=== PATIENT | male | born 1970 | race Caucasian/White ===

== ENCOUNTER → 2018-04-07 07:13 | Outpatient (CLI) | payer OTHER, SELFPAY ==
--- NOTE | 2018-04-07 07:13 | DT_ITS ---
This patient was seen during an EMR downtime April 03, 2018 - April 10, 2018. This patient may have a combination of paper and electronic documentation or all paper documentation. All documentation is viewable within the e-chart portion of [facility] for each patient visit.
[2018-04-07 10:15] LABS: Color, Urine Yellow (Yellow); Glucose, Dipstick Normal (Normal); Ketone-Dipstick Negative (Negative); Leukocyte Esterase-Dipstick Negative /ul (Negative); Nitrite-Dipstick Negative (Negative); Occult Blood-Urine Negative /ul (Negative); Protein-Dipstick 15 mg/dl (Negative); Urine Bilirubin Dipstick Negative (Negative); Urine Clarity Sl. Cloudy (Clear); Urine Urobilinogen Normal (Normal); Urine pH 6.5 (5.0 - 8.0)
[2018-04-07 11:59] LABS: Mean Corp Hgb Conc 35.4 g/gl (32-36); Mean Corpuscular Hgb 32.1 pg (27.0-32.0); Mean Corpuscular Volume 90.7 fL (80-94); RBC Distribution Width CV 12.1 % (11.6-14.6); RBC Distribution Width SD 39.9 fl (35.1-43.9); Red Blood Count 5.29 M/mm3 (4.6-6.2); White Blood Count 5.4 K/mm3 (4.4-11.0)
[2018-04-07 12:00] LABS: Absolute Lymphocyte Count 1.35 X10^3/ul (0.83-4.51); Absolute Neutrophil Count 3.3 X10^3/uL (2.0-7.7); Basophil# 0.03 X10^3/uL; Basophil% 0.6 % (0-1); Eosinophils% 3.7 % (0-5); Lymphocyte # 1.35 X10^3/ul (4.0); Mean Platelet Vol. 11.7 fl (6.2-12.0); Monocyte# 0.51 X10^3/uL; Monocyte% 9.4 % (0-10); Neutrophil % 61.1 % (47-70); POSITIVE COUNT NO; POSITIVE DIFFERENTIAL NO; POSITIVE MORPHOLOGY NO; Platelet Count 134 K/mm3 (150-450)
[2018-04-07 14:47] LABS: Hemoglobin A1c 5.4 % (4.2-6.3)
[2018-04-07 14:55] LABS: ALB/GLOB Ratio 1.3 RATIO (0.9-2.4); AST(SGOT) 24 U/L (15-37); Alanine Aminotransfer ALT/SGPT 47 U/L (16-61); Alkaline Phosphatase 52 U/L (45-117); BUN 18 mg/dL (7-18); BUN/Creat Ratio 19.1 RATIO (10-20); Calcium,Total 8.6 mg/dL (8.5-10.1); Creatinine, Serum 0.94 mg/dL (0.70-1.30); EST Glomerular Filtration Rate 91 mL/min (>60); Est Glom Filt Rate - Afr Amer 110 mL/min (>60); Globulin 3.2 g/dL (2.2-4.2); Glucose 115 mg/dL (74-106); Protein, Total 7.2 g/dL (6.4-8.2)
[2018-04-07 14:56] LABS: Anion Gap 8 (5-15); Chloride 106 mmol/L (98-107); Cholesterol 150 mg/dL (200); High Density Lipoprotein 39 mg/dL; Sodium Level 142 mmol/L (136-145); Triglycerides 241 mg/dL; Very Low Density Lipoprotein 48 mg/dL (5-40)
== END ==
PROVIDERS: Family Provider Family Medicine; PCP Family Medicine; Visit Provider Family Medicine
DX: Z00.00 Encounter for general adult medical examination without abnormal findings (principal); I10 Essential (primary) hypertension; E78.5 Hyperlipidemia, unspecified; R73.02 Impaired glucose tolerance (oral); Z12.5 Encounter for screening for malignant neoplasm of prostate
CPT/HCPCS: 36415; 80053; 80061; 81002; 83036; 84153; 85025; G0103

== ENCOUNTER → 2019-09-19 05:58 | Outpatient (CLI) | payer OTHER, SELFPAY ==
[2019-09-19 07:09] LABS: Absolute Lymphocyte Count 1.91 X10^3/uL (0.83-4.51); Absolute Neutrophil Count 3.9 X10^3/uL (2.0-7.7); Basophil# 0.06 X10^3/uL; Basophil% 0.9 % (0-1); Eosinophil# 0.17 X10^3/uL; Eosinophils% 2.6 % (0-5); Hematocrit 50.4 % (40-54); Hemoglobin 17.1 g/dL (13.0-16.5); Lymphocyte # 1.91 X10^3/ul (4.0); Mean Corp Hgb Conc 33.9 g/dL (32-36); Mean Corpuscular Hgb 30.5 pg (27.0-32.0); Mean Corpuscular Volume 89.8 fL (80-94); Mean Platelet Vol. 11.2 fl (6.2-12.0); Monocyte# 0.56 X10^3/uL; Monocyte% 8.5 % (0-10); NRBC Flagged by Analyzer 0 % (0-5); Neutrophil # 3.86 X10^3/uL (2.7-7.7); Neutrophil % 58.7 % (47-70); Platelet Count 168 K/mm3 (150-450); RBC Distribution Width SD 38.8 fl (35.1-43.9); Red Blood Count 5.61 M/mm3 (4.6-6.2); White Blood Count 6.6 K/mm3 (4.4-11.0)
[2019-09-19 07:38] LABS: Hemoglobin A1c 5.7 % (4.2-6.3)
[2019-09-19 07:44] LABS: ALB/GLOB Ratio 1.3 RATIO (0.9-2.4); AST(SGOT) 27 U/L (15-37); Alanine Aminotransfer ALT/SGPT 40 U/L (16-61); Albumin, Serum 4.1 g/dL (3.2-5.0); Alkaline Phosphatase 60 U/L (45-117); Anion Gap 7 (5-15); BUN 16 mg/dL (7-18); Calcium,Total 8.8 mg/dL (8.5-10.1); Chloride 105 mmol/L (98-107); Cholesterol 152 mg/dL (200); Creatinine, Serum 1.07 mg/dL (0.70-1.30); EST Glomerular Filtration Rate 78 mL/min (>60); Est Glom Filt Rate - Afr Amer 94 mL/min (>60); Globulin 3.2 g/dL (2.2-4.2); Glucose 124 mg/dL (74-106); High Density Lipoprotein 43 mg/dL; PSA,Total - Annual Screen 0.68 ng/mL (0.00-4.00); Potassium 4.1 mmol/L (3.5-5.1); Protein, Total 7.3 g/dL (6.4-8.2); Sodium Level 143 mmol/L (136-145); Triglycerides 150 mg/dL; Very Low Density Lipoprotein 30 mg/dL (5-40)
[2019-09-19 08:25] LABS: Color, Urine Yellow (Yellow); Glucose, Dipstick Normal (Normal); Ketone-Dipstick Negative (Negative); Leukocyte Esterase-Dipstick Negative /ul (Negative); Nitrite-Dipstick Negative (Negative); Occult Blood-Urine Negative /ul (Negative); Protein-Dipstick Negative (Negative); Urine Bilirubin Dipstick Negative (Negative); Urine Clarity Sl. Cloudy (Clear); Urine Urobilinogen Normal (Normal)
== END ==
PROVIDERS: Family Provider Family Medicine; PCP Family Medicine; Referring Provider Family Medicine; Visit Provider Family Medicine
DX: Z00.00 Encounter for general adult medical examination without abnormal findings (principal); Z12.5 Encounter for screening for malignant neoplasm of prostate
CPT/HCPCS: 36415; 80053; 80061; 81002; 83036; 84153; 85025; G0103

== ENCOUNTER 2021-12-15 06:03 | Outpatient (CLI) | payer OTHER, SELFPAY ==
[2021-12-15 07:32] LABS: Absolute Neutrophil Count 3.4 X10^3/uL (2.0-7.7); Basophil# 0.03 X10^3/uL; Basophil% 0.5 % (0-1); Eosinophil# 0.24 X10^3/uL; Eosinophils% 4.4 % (0-5); Hematocrit 45.9 % (40-54); Hemoglobin 16.3 g/dL (13.0-16.5); Lymphocyte % 23.6 % (19-41); Mean Corp Hgb Conc 35.5 g/dL (32-36); Mean Corpuscular Volume 90.2 fL (80-94); Mean Platelet Vol. 11.6 fl (6.2-12.0); Monocyte# 0.48 X10^3/uL; Monocyte% 8.7 % (0-10); NRBC Flagged by Analyzer 0 % (0-5); Neutrophil # 3.42 X10^3/uL (2.7-7.7); Neutrophil % 62.3 % (47-70); Platelet Count 165 K/mm3 (150-450); RBC Distribution Width CV 13.2 % (11.6-14.6); RBC Distribution Width SD 43.3 fl (35.1-43.9); Red Blood Count 5.09 M/mm3 (4.6-6.2); White Blood Count 5.5 K/mm3 (4.4-11.0)
[2021-12-15 07:59] LABS: ALB/GLOB Ratio 1.2 RATIO (0.9-2.4); AST(SGOT) 22 U/L (15-37); Alanine Aminotransfer ALT/SGPT 30 U/L (16-61); Albumin, Serum 3.8 g/dL (3.2-5.0); Alkaline Phosphatase 55 U/L (45-117); Anion Gap 3 (5-15); BUN 11 mg/dL (7-18); BUN/Creat Ratio 13.2 RATIO (10-20); Calcium,Total 8.7 mg/dL (8.5-10.1); Chloride 106 mmol/L (98-107); Cholesterol 122 mg/dL (200); Creatinine, Serum 0.84 mg/dL (0.70-1.30); EST Glomerular Filtration Rate 102 mL/min (>60); Est Glom Filt Rate - Afr Amer 124 mL/min (>60); Globulin 3.1 g/dL (2.2-4.2); Glucose 121 mg/dL (74-106); High Density Lipoprotein 42 mg/dL; PSA,Total - Annual Screen 0.66 ng/mL (0.00-4.00); Potassium 3.9 mmol/L (3.5-5.1); Protein, Total 6.9 g/dL (6.4-8.2); Sodium Level 140 mmol/L (136-145); Triglycerides 147 mg/dL; Very Low Density Lipoprotein 29 mg/dL (5-40)
[2021-12-15 08:30] LABS: Hemoglobin A1c 5.5 % (3.8-5.6)
== END 2021-12-15 23:59 | disposition home or self-care (01) ==
LOC: LAB 06:06
PROVIDERS: PCP Family Medicine; Referring Provider Family Medicine; Visit Provider Family Medicine
DX: Z00.00 Encounter for general adult medical examination without abnormal findings (principal); Z12.5 Encounter for screening for malignant neoplasm of prostate; E78.5 Hyperlipidemia, unspecified; I10 Essential (primary) hypertension; R73.02 Impaired glucose tolerance (oral)
CPT/HCPCS: 36415; 80053; 80061; 83036; 84153; 85025; G0103

== ENCOUNTER → 2023-05-18 | Outpatient (CLI) | payer OTHER, SELFPAY ==
[2023-05-18 10:13] LABS: Absolute Lymphocyte Count 1.37 X10^3/uL (0.83-4.51); Absolute Neutrophil Count 4.5 X10^3/uL (2.0-7.7); Basophil# 0.04 X10^3/uL; Basophil% 0.6 % (0-1); Eosinophil# 0.25 X10^3/uL; Eosinophils% 3.7 % (0-5); Hematocrit 47.6 % (40-54); Lymphocyte # 1.37 X10^3/ul (0.83-4.51); Lymphocyte % 20.4 % (19-41); Mean Corp Hgb Conc 35.7 g/dL (32-36); Mean Corpuscular Hgb 31.7 pg (27.0-32.0); Mean Corpuscular Volume 88.6 fL (80-94); Mean Platelet Vol. 10.8 fl (6.2-12.0); Monocyte# 0.53 X10^3/uL; Monocyte% 7.9 % (0-10); NRBC Flagged by Analyzer 0 % (0-5); Neutrophil # 4.49 X10^3/uL (2.7-7.7); Neutrophil % 66.7 % (47-70); Platelet Count 173 K/mm3 (150-450); RBC Distribution Width CV 12.9 % (11.6-14.6); RBC Distribution Width SD 41.6 fl (35.1-43.9); Red Blood Count 5.37 M/mm3 (4.6-6.2); White Blood Count 6.7 K/mm3 (4.4-11.0)
[2023-05-18 11:04] LABS: ALB/GLOB Ratio 1.1 RATIO (0.9-2.4); AST(SGOT) 23 U/L (15-37); Alanine Aminotransfer ALT/SGPT 38 U/L (16-61); Albumin, Serum 3.9 g/dL (3.2-5.0); Alkaline Phosphatase 56 U/L (45-117); Anion Gap 3 (5-15); BUN 12 mg/dL (7-18); BUN/Creat Ratio 13.7 RATIO (10-20); Chloride 105 mmol/L (98-107); Cholesterol 146 mg/dL (200); Creatinine, Serum 0.88 mg/dL (0.70-1.30); EST Glomerular Filtration Rate 96 mL/min (>60); Est Glom Filt Rate - Afr Amer 116 mL/min (>60); Globulin 3.4 g/dL (2.2-4.2); Glucose 116 mg/dL (74-106); High Density Lipoprotein 45 mg/dL; Potassium 4.4 mmol/L (3.5-5.1); Protein, Total 7.3 g/dL (6.4-8.2); Sodium Level 138 mmol/L (136-145); Triglycerides 173 mg/dL; Very Low Density Lipoprotein 35 mg/dL (5-40)
== END | disposition home or self-care (01) ==
LOC: MFPLAB 08:41
PROVIDERS: PCP Family Medicine; Visit Provider Family Medicine
DX: I10 Essential (primary) hypertension (principal)
CPT/HCPCS: 36415; 80053; 80061; 84443; 85025

== ENCOUNTER → 2023-10-26 | Outpatient (CLI) | payer OTHER, SELFPAY ==
[2023-10-26 10:26] LABS: Hemoglobin A1c 5.5 % (3.8-5.6)
== END | disposition home or self-care (01) ==
LOC: MFPLAB 08:36
PROVIDERS: PCP Family Medicine; Visit Provider Family Medicine
DX: R73.03 Prediabetes (principal); I10 Essential (primary) hypertension
CPT/HCPCS: 36415; 83036

== ENCOUNTER → 2024-04-06 | Outpatient (CLI) | payer OTHER, SELFPAY ==
[2024-04-06 10:19] LABS: Absolute Lymphocyte Count 1.46 X10^3/uL (0.83-4.51); Absolute Neutrophil Count 2.9 X10^3/uL (2.0-7.7); Basophil# 0.04 X10^3/uL; Basophil% 0.8 % (0-1); Eosinophil# 0.27 X10^3/uL; Eosinophils% 5.1 % (0-5); Hematocrit 46.9 % (40-54); Hemoglobin 16.4 g/dL (13.0-16.5); Lymphocyte # 1.46 X10^3/ul (0.83-4.51); Lymphocyte % 27.5 % (19-41); Mean Corpuscular Hgb 30.4 pg (27.0-32.0); Mean Platelet Vol. 11.1 fl (6.2-12.0); Monocyte# 0.57 X10^3/uL; Monocyte% 10.8 % (0-10); NRBC Flagged by Analyzer 0 % (0-5); Neutrophil # 2.94 X10^3/uL (2.7-7.7); Neutrophil % 55.4 % (47-70); Platelet Count 180 K/mm3 (150-450); RBC Distribution Width CV 12.7 % (11.6-14.6); RBC Distribution Width SD 39.8 fl (35.1-43.9); Red Blood Count 5.39 M/mm3 (4.6-6.2); White Blood Count 5.3 K/mm3 (4.4-11.0)
[2024-04-06 11:31] LABS: ALB/GLOB Ratio 1.4 RATIO (0.9-2.4); AST(SGOT) 30 U/L (15-37); Alanine Aminotransfer ALT/SGPT 28 U/L (16-61); Albumin, Serum 4.3 g/dL (3.2-5.0); Alkaline Phosphatase 60 U/L (45-117); Anion Gap 9 (5-15); BUN 17 mg/dL (7-18); BUN/Creat Ratio 18.7 RATIO (10-20); Calcium,Total 9.1 mg/dL (8.5-10.1); Chloride 103 mmol/L (98-107); Cholesterol 151 mg/dL (200); Creatinine, Serum 0.91 mg/dL (0.70-1.30); EST Glomerular Filtration Rate 92 mL/min (>60); Est Glom Filt Rate - Afr Amer 112 mL/min (>60); Glucose 102 mg/dL (74-106); High Density Lipoprotein 50 mg/dL; Potassium 4.3 mmol/L (3.5-5.1); Protein, Total 7.3 g/dL (6.4-8.2); Sodium Level 135 mmol/L (136-145); Thyroid Stim Hormone (TSH) 2.01 uIU/mL (0.358-3.74); Triglycerides 72 mg/dL; Very Low Density Lipoprotein 14 mg/dL (5-40)
== END | disposition home or self-care (01) ==
LOC: MTLAB 07:04
PROVIDERS: PCP Family Medicine; Referring Provider Family Medicine; Visit Provider Family Medicine
DX: I10 Essential (primary) hypertension (principal)
CPT/HCPCS: 36415; 80053; 80061; 84443; 85025

== ENCOUNTER → 2025-05-21 | Outpatient (CLI) | payer OTHER, SELFPAY ==
--- OUTSIDE RECORDS SUMMARY | 2025-05-21 07:07 | XMS RPT_ITS | CCD ---
Author Organization [facility] Care Team Providers Care Porcelain Technician Name Role Phone Ivan STARKEY, Yadira Berry Primary Care Provider Christopher STARKEY, Leo Altamirano Primary Care Provider LEO JAEGER Attending Unavailab edward LOVE, YADIRA BERRY Primary Care Unavailable LEO JAEGER Attending Unavailab LEO Sims Primary Care Unavailab Gagandeep Ortiz Unavailable Liza Obregon Primary Care Unavailable Sabas, Liza Attending Unavailable Sabas, Chalon Primary Care Unavailable Sabas, Liza Attending Unavailable Sabas, Apurvaon Referring Unavailable Sabas, Chalon Primary Care Unavailable Sabas, Liza Attending Unavailable Medications Completed/Discontinued Medications Medication Drug Class(es) Dates Sig (Normalized) Sig (Original) amLODIPine 5 mg oral tablet (3 sources) Dihydropyridine Calcium Channel Maricarmen Start: 04-11-2023 take 1 tablet by mouth once daily amLODIPine (NORVASC) 5 mg tablet take 1 tablet by mouth once daily 90 tablet 3 04/11/2023 Active Start: 01-12-2020 take 1 tablet by jayce th once daily amLODIPine (NORVASC) 5 mg tablet Take 1 tablet by mouth once daily. 0 01/12/2020 Active Comment on above: Take 1 tablet by jayce th once daily. take 1 tablet by jayce th once daily atenolol 25 mg oral tablet (2 sources) beta-Adrenergic Maricarmen Start: 2010 End: 2022 take 1 tablet by mouth once daily atenolol 25 mg ORAL tablet Take one(1) tablet daily. 90 Tab 3 11/09/2010 11/19/2022 Discontinued Comment on above: Take one(1) tablet d aily. benzonatate 200 mg oral capsule (3 sources) Non-narcotic Antitussive Start: 2010 take 1 capsule by mouth every eight hours as needed Benzonatate (TESSALON) 200 mg ORAL capsule Take 200 mg by mouth three times daily as needed. FOR COUGHING. 30 capsule 0 04/07/2011 Active Comment on above: Take 200 mg by mouth three times daily as needed. FOR COUGHING. codeine phosphate 2 mg/ml / guaiFENesin 20 mg/ml oral solution (3 sources) Opioid Agonist Start: 2010 take 1-2 [tsp_us] by mouth at bedtime as needed codeine-guaifenesin 10-100 mg/5 mL ORAL Syrp TAKE 1-2 TEASPOON at bedtime NEEDED FOR COUGHING. 60 mL 0 04/07/2011 Active Comment on above: TAKE 1-2 TEASPOON at bedtime NEEDED FOR COUGHING. hydroCHLOROthiazide 25 mg oral tablet (3 sources) Thiazide Diuretic Start: 2010 take 1 tablet by mouth once daily hydrochlorothiazide 25 mg ORAL tablet Indications: Essential hypertension, benign Take one(1) tablet daily. 90 Tab 3 11/09/2010 Active Comment on above: Take one(1) tablet d aily. lisinopril 20 mg oral tablet (5 sources) Angiotensin Converting Enzyme Inhibitor Start: 2021 End: 2022 take 1 tablet by mouth once daily lisinopril (ZESTRIL, PRINIVIL) 20 mg tablet Take 1 tablet by mouth once daily. 90 tablet 3 11/19/2022 Active Start: 08-03-2010 End: 10-04-2022 take 1 tablet by mouth once daily lisinopril 10 mg ORAL tablet Indications: Essential hypertension, benign Take one(1) tablet daily. 90 3 08/03/2010 10/04/2022 Discontinued Comment on above: Take one(1) tablet d aily. Take 1 tablet by jayce th once daily. 24 hr metoprolol succinate 50 mg extended release oral tablet (4 sources) beta-Adrenergic Maricarmen Start: 06-17-2020 End: 11-19-2022 take 1 tablet by mouth once daily metoprolol succinate ER (TOPROL XL) 50 mg 24 hr tablet Take 1 tablet by mouth once daily. 90 tablet 3 11/19/2022 Active Comment on above: Take 50 mg by mouth once daily. Take 1 tablet by jayce once daily. omeprazole 20 mg delayed release oral capsule (3 sources) Proton Pump Inhibitor Start: 04-11-2023 take 1 capsule by mouth once daily omeprazole (PRILOSEC) 20 mg capsule take 1 capsule by mouth once daily as directed 90 capsule 3 04/11/2023 Active Start: 06-11-2021 omeprazole (MS ILOSEC) 20 mg capsule Take by mouth. 0 06/11/2021 Active Comment on above: Take by mouth. take 1 capsule by mo [facility] once daily as directed Problems Active Problems Problem Classification Problem Date Documented Da te Episodic/Chronic Disorders of lipid metabolism (1 source) Hyperlipidemia; Translations: [Hyperlipidemia, unspecified] Onset: 06-17-2017 04-08-2023 Chronic Essential hypertension (6 sources) Benign essential hypertension; Translations: [Essential (primary) hypertension] Onset: 12-25-2005 Chronic Other nutritional; endocrine; and metabolic disorders (3 sources) Obesity; Translations: [Obesity, unspecified] Onset: 03-19-2006 03-19-2006 Chronic Screening and history of mental health and substance abuse codes (1 source) Encounter for screening for depression; Translations: [Screening for depression] Onset: 04-11-2023 Episodic Unclassified (1 source) 6 Month Exam Onset: 10-04-2022 Past or Other Problems Problem Classification Problem Date Documented Da te Episodic/Chronic Allergic reactions (3 sources) Contact dermatitis; Translations: [Unspecified contact dermatitis, unspecified cause] Onset: 08-27-2006 12-08-2007 Episodic Diabetes mellitus without complication (5 sources) Impaired fasting glycemia; Translations: [Impaired fasting glucose] Onset: 06-02-2009 06-02-2009 Episodic Other screening for suspected conditions (not mental disorders or infectious disease) (6 sources) Liver function tests abnormal; Translations: [Nonspecific abnormal results of function study of liver] Onset: 02-02-2010 02-02-2010 Episodic Results Test Name Value Interpretation Reference Range Facility CBC W/Diff, Automatedon 06-0 Absolute Lymph 1.46 X10 3/uL Normal 0.83-4.51 [facility] Comment on above: Order Comment: Order Date: 10/26/23 Order Info: [id number] - CBCD Performed By: #### L 500.4050, L100.0100, L500.4100, [id number] #### [facility] [address] [place], [address] Absolute Neut 2.9 X10 3/uL Normal 2.0-7.7 [facility] Comment on above: Order Comment: Order Date: 10/26/23 Order Info: 0184-1 - CBCD Performed By: #### L 500.4050, L100.0100, L500.4100, [id number] #### [facility] [address] [place], [address] Basophils/100 WBC (Bld) 0.8 % Normal 0-1 [facility] Comment on above: Order Comment: Order Date: 10/26/23 Order Info: 018- - CBCD Performed By: #### L 500.4050, L100.0100, L500.4100, [id number] #### [facility] [address] [place], [address] Eosinophils/100 WBC (Bld) 5.1 % High 0-5 [facility] Comment on above: Order Comment: Order Date: 10/26/23 Order Info: 018- - CBCD Performed By: #### L 500.4050, L100.0100, L500.4100, [id number] #### [facility] [address] [place], [address] Erythrocyte distribution width (RBC) [Ratio] 12.7 % Normal 11.6-14.6 [facility] Comment on above: Order Comment: Order Date: 10/26/23 Order Info: 0184-1 - CBCD Performed By: #### L 500.4050, L100.0100, L500.4100, [id number] #### [facility] [address] [place], [address] Hematocrit (Bld) [Volume fraction] 46.9 % Normal 40-54 [facility] Comment on above: Order Comment: Order Date: 10/26/23 Order Info: 0184-1 - CBCD Performed By: #### L 500.4050, L100.0100, L500.4100, [id number] #### [facility] [address] [place], [address] Hemoglobin (Bld) [Mass/Vol] 16.4 g/dL Normal 13.0-16.5 [facility] Comment on above: Order Comment: Order Date: 10/26/23 Order Info: 0184- - CBCD Performed By: #### L 500.4050, L100.0100, L500.4100, [id number] #### [facility] [address] [place], [address] IG% 0.400 Normal 0.0-0.9 [facility] Comment on above: Order Comment: Order Date: 10/26/23 Order Info: [id number]- - CBCD Result Comment: IG% - Immature Granulocytes (promyelocytes, myelocytes and metamyelocytes) > 1% indicates that a LEFT SHIFT is Present. Performed By: #### L 500.4050, L100.0100, L500.4100, [id number] #### [facility] [address] [place], [address] Lymphocytes/100 WBC (Bld) 27.5 % Normal 19-41 [facility] Comment on above: Order Comment: Order Date: 10/26/23 Order Info: 0184-1 - CBCD Performed By: #### L 500.4050, L100.0100, L500.4100, [id number] #### [facility] [address] [place], [address] MCH (RBC) [Entitic mass] 30.4 pg Normal 27.0-32.0 [facility] Comment on above: Order Comment: Order Date: 10/26/23 Order Info: 0184-1 - CBCD Performed By: #### L 500.4050, L100.0100, L500.4100, [id number] #### [facility] [address] [place], [address] MCHC (RBC) [Mass/Vol] 35.0 g/dL Normal 32-36 [facility] Comment on above: Order Comment: Order Date: 10/26/23 Order Info: 0184-1 - CBCD Performed By: #### L 500.4050, L100.0100, L500.4100, [id number] #### [facility] [address] [place], [address] MCV (RBC) [Entitic vol] 87.0 fL Normal 80-94 [facility] Comment on above: Order Comment: Order Date: 10/26/23 Order Info: 018-1 - CBCD Performed By: #### L 500.4050, L100.0100, L500.4100, [id number] #### [facility] [address] [place], [address] Monocytes/100 WBC (Bld) 10.8 % High 0-10 [facility] Comment on above: Order Comment: Order Date: 10/26/23 Order Info: 0184-1 - CBCD Performed By: #### L 500.4050, L100.0100, L500.4100, [id number] #### [facility] [address] [place], [address] Neutrophils/100 WBC (Bld) 55.4 % Normal 47-70 [facility] Comment on above: Order Comment: Order Date: 10/26/23 Order Info: 0184-1 - CBCD Performed By: #### L 500.4050, L100.0100, L500.4100, [id number] #### [facility] [address] [place], [address] Nucleated RBC (Bld) [#/Vol] 0 10*3/uL Normal 0-5 [facility] Comment on above: Order Comment: Order Date: 10/26/23 Order Info: 0184-1 - CBCD Performed By: #### L 500.4050, L100.0100, L500.4100, [id number] #### [facility] [address] [place], [address] Platelet mean volume (Bld) [Entitic vol] 11.1 fL Normal 6.2-12.0 [facility] Comment on above: Order Comment: Order Date: 10/26/23 Order Info: 0184- - CBCD Performed By: #### L 500.4050, L100.0100, L500.4100, [id number] #### [facility] [address] [place], [address] Platelets (Bld) [#/Vol] 180 10*3/uL Normal 150-450 [facility] Comment on above: Order Comment: Order Date: 10/26/23 Order Info: 0184- - CBCD Performed By: #### L 500.4050, L100.0100, L500.4100, [id number] #### [facility] [address] [place], [address] RBC (Bld) [#/Vol] 5.39 10*6/uL Normal 4.6-6.2 [facility] Comment on above: Order Comment: Order Date: 10/26/23 Order Info: 0184-1 - CBCD Performed By: #### L 500.4050, L100.0100, L500.4100, [id number] #### [facility] [address] [place], [address] RDW SD 39.8 fl Normal 35.1-43.9 [facility] Comment on above: Order Comment: Order Date: 10/26/23 Order Info: 0184-1 - CBCD Performed By: #### L 500.4050, L100.0100, L500.4100, [id number] #### [facility] [address] [place], [address] WBC (Bld) [#/Vol] 5.3 10*3/uL Normal 4.4-11.0 [facility] Comment on above: Order Comment: Order Date: 10/26/23 Order Info: 0184-1 - CBCD Performed By: #### L 500.4050, L100.0100, L500.4100, [id number] #### [facility] [address] [place], [address] Comprehensive Metabolic Prof ilon 04-06-2024 Albumin [Mass/Vol] 4.3 g/dL Normal 3.2-5.0 [facility] Comment on above: Order Comment: Order Date: 10/26/23 Order Info: [id number] - CMP Order Info: [id number] - LIPID Order Info: [id number] - TSH Performed By: #### L 500.4050, L100.0100, L500.4100, [id number] #### [facility] [address] [place], [address] Albumin/Globulin [Mass ratio] 1.4 {ratio} Normal 0.9-2.4 [facility] Comment on above: Order Comment: Order Date: 10/26/23 Order Info: [id number] - CMP Order Info: [id number] - LIPID Order Info: [id number] - TSH Performed By: #### L 500.4050, L100.0100, L500.4100, [id number] #### [facility] [address] [place], [address] ALK P 60 U/L Normal 45-117 [facility] Comment on above: Order Comment: Order Date: 10/26/23 Order Info: [id number] - CMP Order Info: [id number] - LIPID Order Info: [id number] - TSH Performed By: #### L 500.4050, L100.0100, L500.4100, [id number] #### [facility] [address] [place], [address] ALT [Catalytic activity/Vol] 28 U/L Normal 16-61 [facility] Comment on above: Order Comment: Order Date: 10/26/23 Order Info: 785-1 - CMP Order Info: [id number] - LIPID Order Info: 3 - TSH Performed By: #### L 500.4050, L100.0100, L500.4100, [id number] #### [facility] [address] [place], [address] AST [Catalytic activity/Vol] 30 U/L Normal 15-37 [facility] Comment on above: Order Comment: Order Date: 10/26/23 Order Info: [id number] - CMP Order Info: - LIPID Order Info: [id number] - TSH Performed By: #### L 500.4050, L100.0100, L500.4100, [id number] #### [facility] [address] [place], [address] Bilirubin [Mass/Vol] 2.10 mg/dL High 0.20-1.00 [facility] Comment on above: Order Comment: Order Date: 10/26/23 Order Info: [id number] - CMP Order Info: - LIPID Order Info: 3 - TSH Result Comment: For patients on eltrombopag therapy, use of Dimension [place] TBIL is not recommended. Performed By: #### L 500.4050, L100.0100, L500.4100, [id number] #### [facility] [address] [place], [address] BUN/CRE 18.7 RATIO Normal 10-20 [facility] Comment on above: Order Comment: Order Date: 10/26/23 Order Info: 07- - CMP Order Info: - LIPID Order Info: [id number] - TSH Performed By: #### L 500.4050, L100.0100, L500.4100, [id number] #### [facility] [address] [place], [address] CA,Total 9.1 mg/dL Normal 8.5-10.1 [facility] Comment on above: Order Comment: Order Date: 10/26/23 Order Info: 785- - CMP Order Info: [id number] - LIPID Order Info: [id number] - TSH Performed By: #### L 500.4050, L100.0100, L500.4100, [id number] #### [facility] [address] [place], [address] Chloride [Moles/Vol] 103 mmol/L Normal 98-107 [facility] Comment on above: Order Comment: Order Date: 10/26/23 Order Info: 07 - CMP Order Info: [id number] - LIPID Order Info: [id number] - TSH Performed By: #### L 500.4050, L100.0100, L500.4100, [id number] #### [facility] [address] [facility] [address] [place], [address] CO2 [Moles/Vol] 23.0 mmol/L Normal 21.0-32.0 [facility] Comment on above: Order Comment: Order Date: 10/26/23 Order Info: 07 - CMP Order Info: [id number] - LIPID Order Info: [id number] - TSH Performed By: #### L 500.4050, L100.0100, L500.4100, [id number] #### [facility] [address] [facility] [address] [address] [place], [address] Creatinine [Mass/Vol] 0.91 mg/dL Normal 0.70-1.30 [facility] Comment on above: Order Comment: Order Date: 10/26/23 Order Info: 0786- - CMP Order Info: [id number] - LIPID Order Info: 3 - TSH Result Comment: The validity of the calculated GFR GFRAA in patients over 70 years has not been determined. Clinical correlation is essential. Performed By: #### L 500.4050, L100.0100, L500.4100, [id number] #### [facility] [address] [place], [address] EST GFR - AA 112 mL/min Normal >60 [facility] Comment on above: Order Comment: Order Date: 10/26/23 Order Info: 07-1 - CMP Order Info: [id number] - LIPID Order Info: 3 - TSH Result Comment: Afri can Ghanaian GFR Calc Performed By: #### L 500.4050, L100.0100, L500.4100, [id number] #### [facility] [address] [place], [address] GAP 9 Normal 5-15 [facility] Comment on above: Order Comment: Order Date: 10/26/23 Order Info: 0786 - CMP Order Info: [id number] - LIPID Order Info: 3 - TSH Performed By: #### L 500.4050, L100.0100, L500.4100, [id number] #### [facility] [address] [place], [address] GFR/1.73 sq M.predicted among non-blacks MDRD (S/P/Bld) [Vol rate/Area] 92 mL/min/{1.73_m2} Normal >60 [facility] Comment on above: Order Comment: Order Date: 10/26/23 Order Info: [id number] - CMP Order Info: [id number] - LIPID Order Info: 63 - TSH Result Comment: Non- GFR Calc Performed By: #### L 500.4050, L100.0100, L500.4100, [id number] #### [facility] [address] [place], [address] Globulin (S) [Mass/Vol] 3.0 g/dL Normal 2.2-4.2 [facility] Comment on above: Order Comment: Order Date: 10/26/23 Order Info: [id number] - CMP Order Info: - LIPID Order Info: [id number] - TSH Performed By: #### L 500.4050, L100.0100, L500.4100, [id number] #### [facility] [address] [place], [address] Glucose [Mass/Vol] 102 mg/dL Normal 74-106 [facility] Comment on above: Order Comment: Order Date: 10/26/23 Order Info: [id number] - CMP Order Info: - LIPID Order Info: [id number] - TSH Result Comment: Fast ing Glucose result from 100 to 125 mg/dL suggests IMPAIRED HOMEOSTASIS per A.D.A. criteria. Performed By: #### L 500.4050, L100.0100, L500.4100, [id number] #### [facility] [address] [place], [address] Potassium [Moles/Vol] 4.3 mmol/L Normal 3.5-5.1 [facility] Comment on above: Order Comment: Order Date: 10/26/23 Order Info: [id number] - CMP Order Info: - LIPID Order Info: [id number] - TSH Performed By: #### L 500.4050, L100.0100, L500.4100, [id number] #### [facility] [address] [place], [address] Sodium [Moles/Vol] 135 mmol/L Low 136-145 [facility] Comment on above: Order Comment: Order Date: 10/26/23 Order Info: [id number] - CMP Order Info: - LIPID Order Info: [id number] - TSH Performed By: #### L 500.4050, L100.0100, L500.4100, [id number] #### [facility] [address] [place], [address] T PROT 7.3 g/dL Normal 6.4-8.2 [facility] Comment on above: Order Comment: Order Date: 10/26/23 Order Info: [id number] - CMP Order Info: [id number] - LIPID Order Info: [id number] - TSH Performed By: #### L 500.4050, L100.0100, L500.4100, [id number] #### [facility] [address] [place], [address] Urea nitrogen [Mass/Vol] 17 mg/dL Normal 7-18 [facility] Comment on above: Order Comment: Order Date: 10/26/23 Order Info: [id number] - CMP Order Info: - LIPID Order Info: [id number] - TSH Performed By: #### L 500.4050, L100.0100, L500.4100, [id number] #### [facility] [address] [place], [address] Lipid Profileon 04-06-2024 Cholesterol [Mass/Vol] 151 mg/dL Normal 200 [facility] Comment on above: Order Comment: Order Date: 10/26/23 Order Info: 785-10 - CMP Order Info: - LIPID Order Info: [id number] - TSH Result Comment: <200 mg/dL Desirable 200-240 mg/dL Borderline >240 mg/dL High Risk Performed By: #### L 500.4050, L100.0100, L500.4100, [id number] #### [facility] [address] [place], [address] Cholesterol in HDL [Mass/Vol] 50 mg/dL Normal [facility] Comment on above: Order Comment: Order Date: 10/26/23 Order Info: [id number] - CMP Order Info: - LIPID Order Info: [id number] - TSH Result Comment: The drugs N-Acetylcysteine and Metamizole may falsely depress this assay. Reference Range HDL <40 mg/dL Low HDL Cholesterol HDL >or= 60 mg/dL High HDL Cholesterol Performed By: #### L 500.4050, L100.0100, L500.4100, [id number] #### [facility] [address] [place], [address] Cholesterol in LDL [Mass/Vol] 87 mg/dL Normal 0-130 [facility] Comment on above: Order Comment: Order Date: 10/26/23 Order Info: 0786-1 - CMP Order Info: [id number] - LIPID Order Info: [id number] - TSH Performed By: #### L 500.4050, L100.0100, L500.4100, [id number] #### [facility] [address] [place], [address] Cholesterol in VLDL [Mass/Vol] 14 mg/dL Normal 5-40 [facility] Comment on above: Order Comment: Order Date: 10/26/23 Order Info: 0786- - CMP Order Info: [id number] - LIPID Order Info: 6-3 - TSH Performed By: #### L 500.4050, L100.0100, L500.4100, [id number] #### [facility] [address] [place], [address] Triglyceride [Mass/Vol] 72 mg/dL Normal [facility] Comment on above: Order Comment: Order Date: 10/26/23 Order Info: 0786- - CMP Order Info: [id number] - LIPID Order Info: [id number] - TSH Result Comment: The drugs N-Acetylcysteine and Metamizole may falsely depress this assay. Serum Triglycerides Reference Interval Normal <150 mg/dL Borderline high 150 - 199 mg/dL High 200 - 499 mg/dL Very High > or = 500 mg/dL Performed By: #### L 500.4050, L100.0100, L500.4100, [id number] #### [facility] [address] [place], [place], [address] Thyroid Stim Hormone (TSH)on 04-06-2024 TSH 2.01 uIU/mL Normal 0.358-3.74 [facility] Comment on above: Order Comment: Order Date: 10/26/23 Order Info: [id number] - CMP Order Info: [id number] - LIPID Order Info: [id number] - TSH Performed By: #### L 500.4050, L100.0100, L500.4100, [id number] #### [facility] [address] [place], [place], [address] Hemoglobin A1con 10-26-2023 HbA1c (Bld) [Mass fraction] 5.5 % Normal 3.8-5.6 [facility] Comment on above: Result Comment: Norm al < 5.7 % Prediabetic 5.7 - 6.4 % Diabetic >or= 6.5 % Please note range changes. Performed By: #### L [id number] #### [facility] [address] [place], [place], [address] Whole blood hemoglobin A1c/t otal hemoglobin ratio (mass fraction)Ordered By: Liza Obregon on 10-26-2023 HbA1c (Bld) [Mass fraction] 5.5 % 3.8-5.6 [facility] [facility] Comment on above: Normal < 5.7 % Predi abetic 5.7 - 6.4 % Diabetic >or= 6.5 % Please note range changes. Absolute lymphocyte countOrd ered By: Liza Obregon on 05-18-2023 Lymphocytes Auto (Unsp spec) [#/Vol] 1.37 10*3/uL 0.83-4.51 [facility] Basophil percentageOrdered B y: Liza Obregon on 05-18-2023 Basophils/100 WBC (Bld) 0.6 % 0-1 [facility] Bilirubin [Mass/Vol] 1.20 mg/dL 0.20-1.00 [facility] Comment on above: For patients on eltr ombopag therapy, use of Dimension [place] TBIL is not recommended. Chloride [Moles/Vol] 105 mmol/L 98-107 [facility] Cholesterol [Mass/Vol] 146 mg/dL <200 [facility] Comment on above: <200 mg/dL Desirable 200-240 mg/dL Borderline >240 mg/dL High Risk Eosinophils/100 WBC (Bld) 3.7 % 0-5 [facility] Glucose [Mass/Vol] 116 mg/dL 74-106 [facility] Comment on above: Fasting Glucose resu lt from 100 to 125 mg/dL suggests IMPAIRED HOMEOSTASIS per A.D.A. criteria. Neutrophils (Bld) [#/Vol] 4.5 10*3/uL 2.0-7.7 [facility] Neutrophils/100 WBC (Bld) 66.7 % 47-70 [facility] Potassium [Moles/Vol] 4.4 mmol/L 3.5-5.1 [facility] Protein [Mass/Vol] 7.3 g/dL 6.4-8.2 [facility] Sodium [Moles/Vol] 138 mmol/L 136-145 [facility] Triglyceride [Mass/Vol] 173 mg/dL <199 [facility] Comment on above: The drugs N-Acetylcy steine and Metamizole may falsely depress this assay.Serum Triglycerides Reference Interval Normal <150 mg/dL Borderline high 150 - 199 mg/dL High 200 - 499 mg/dL Very High > or = 500 mg/dL WBC (Bld) [#/Vol] 6.7 10*3/uL 4.4-11.0 [facility] Blood erythrocytes count (nu mber/volume)Ordered By: Liza Obregon on 05-18-2023 RBC (Bld) [#/Vol] 5.37 10*6/uL 4.6-6.2 [facility] Blood hemoglobin measurement (mass/volume)Ordered By: Liza Obregon on 05-18-2023 Hemoglobin (Bld) [Mass/Vol] 17.0 g/dL 13.0-16.5 [facility] Blood lymphocytes/100 leukoc ytesOrdered By: Liza Obregon on 05-18-2023 Lymphocytes/100 WBC (Bld) 20.4 % 19-41 [facility] Blood monocytes/100 leukocyt esOrdered By: Liza Obregon on 05-18-2023 Monocytes/100 WBC (Bld) 7.9 % 0-10 [facility] Blood platelet mean volumeOr dered By: Liza Obregon on 05-18-2023 Platelet mean volume (Bld) [Entitic vol] 10.8 fL 6.2-12.0 [facility] CBC W/Diff, Automatedon 04-30 Absolute Lymph 1.37 X10 3/uL Normal 0.83-4.51 [facility] Comment on above: Performed By: #### L 500.4100, L100.0100, L500.4050, L501.9520 #### [facility] [address] [place], [address] Absolute Neut 4.5 X10 3/uL Normal 2.0-7.7 [facility] Comment on above: Performed By: #### L 500.4100, L100.0100, L500.4050, [id number] #### [facility] [address] [place], [address] Basophils/100 WBC (Bld) 0.6 % Normal 0-1 [facility] Comment on above: Performed By: #### L 500.4100, L100.0100, L500.4050, L501.9520 #### [facility] [address] [place], [address] Eosinophils/100 WBC (Bld) 3.7 % Normal 0-5 [facility] Comment on above: Performed By: #### L 500.4100, L100.0100, L500.4050, [id number] #### [facility] [address] [place], [address] Erythrocyte distribution width (RBC) [Ratio] 12.9 % Normal 11.6-14.6 [facility] Comment on above: Performed By: #### L 500.4100, L100.0100, L500.4050, L501.9520 #### [facility] [address] [place], [address] Hematocrit (Bld) [Volume fraction] 47.6 % Normal 40-54 [facility] Comment on above: Performed By: #### L 500.4100, L100.0100, L500.4050, [id number] #### [facility] [address] [place], [address] Hemoglobin (Bld) [Mass/Vol] 17.0 g/dL High 13.0-16.5 [facility] Comment on above: Performed By: #### L 500.4100, L100.0100, L500.4050, [id number] #### [facility] [address] [place], [address] IG% 0.700 Normal 0.0-0.9 [facility] Comment on above: Result Comment: IG% - Immature Granulocytes (promyelocytes, myelocytes and metamyelocytes) > 1% indicates that a LEFT SHIFT is Present. Performed By: #### L 500.4100, L100.0100, L500.4050, L501.9520 #### [facility] [address] [place], [address] Lymphocytes/100 WBC (Bld) 20.4 % Normal 19-41 [facility] Comment on above: Performed By: #### L 500.4100, L100.0100, L500.4050, [id number] #### [facility] [address] [place], [address] MCH (RBC) [Entitic mass] 31.7 pg Normal 27.0-32.0 [facility] Comment on above: Performed By: #### L 500.4100, L100.0100, L500.4050, [id number] #### [facility] [address] [place], [address] MCHC (RBC) [Mass/Vol] 35.7 g/dL Normal 32-36 [facility] Comment on above: Performed By: #### L 500.4100, L100.0100, L500.4050, [id number] #### [facility] [address] [place], [address] MCV (RBC) [Entitic vol] 88.6 fL Normal 80-94 [facility] Comment on above: Performed By: #### L 500.4100, L100.0100, L500.4050, [id number] #### [facility] [address] [place], [address] Monocytes/100 WBC (Bld) 7.9 % Normal 0-10 [facility] Comment on above: Performed By: #### L 500.4100, L100.0100, L500.4050, [id number] #### [facility] [address] [place], [address] Neutrophils/100 WBC (Bld) 66.7 % Normal 47-70 [facility] Comment on above: Performed By: #### L 500.4100, L100.0100, L500.4050, [id number] #### [facility] [address] [place], [address] Nucleated RBC (Bld) [#/Vol] 0 10*3/uL Normal 0-5 [facility] Comment on above: Performed By: #### L 500.4100, L100.0100, L500.4050, [id number] #### [facility] [address] [place], [address] Platelet mean volume (Bld) [Entitic vol] 10.8 fL Normal 6.2-12.0 [facility] Comment on above: Performed By: #### L 500.4100, L100.0100, L500.4050, [id number] #### [facility] [address] [place], [address] Platelets (Bld) [#/Vol] 173 10*3/uL Normal 150-450 [facility] Comment on above: Performed By: #### L 500.4100, L100.0100, L500.4050, [id number] #### [facility] [address] [place], [address] RBC (Bld) [#/Vol] 5.37 10*6/uL Normal 4.6-6.2 [facility] Comment on above: Performed By: #### L 500.4100, L100.0100, L500.4050, [id number] #### [facility] [address] [place], [address] RDW SD 41.6 fl Normal 35.1-43.9 [facility] Comment on above: Performed By: #### L 500.4100, L100.0100, L500.4050, [id number] #### [facility] [address] [place], [address] WBC (Bld) [#/Vol] 6.7 10*3/uL Normal 4.4-11.0 [facility] Comment on above: Performed By: #### L 500.4100, L100.0100, L500.4050, [id number] #### [facility] [address] [place], [address] Comprehensive Metabolic Prof [facility] 05-18-2023 Albumin [Mass/Vol] 3.9 g/dL Normal 3.2-5.0 [facility] Comment on above: Performed By: #### L 500.4100, L100.0100, L500.4050, [id number] #### [facility] [address] [place], [address] Albumin/Globulin [Mass ratio] 1.1 {ratio} Normal 0.9-2.4 [facility] Comment on above: Performed By: #### L 500.4100, L100.0100, L500.4050, [id number] #### [facility] [address] [place], [address] ALK P 56 U/L Normal 45-117 [facility] Comment on above: Performed By: #### L 500.4100, L100.0100, L500.4050, [id number] #### [facility] [address] [place], [address] ALT [Catalytic activity/Vol] 38 U/L Normal 16-61 [facility] Comment on above: Performed By: #### L 500.4100, L100.0100, L500.4050, [id number] #### [facility] [address] [place], [address] AST [Catalytic activity/Vol] 23 U/L Normal 15-37 [facility] Comment on above: Performed By: #### L 500.4100, L100.0100, L500.4050, [id number] #### [facility] [address] [place], [address] Bilirubin [Mass/Vol] 1.20 mg/dL High 0.20-1.00 [facility] Comment on above: Result Comment: For patients on eltrombopag therapy, use of Dimension [place] TBIL is not recommended. Performed By: #### L 500.4100, L100.0100, L500.4050, L501.9520 #### [facility] [address] [place], [address] BUN/CRE 13.7 RATIO Normal 10-20 [facility] Comment on above: Performed By: #### L 500.4100, L100.0100, L500.4050, [id number] #### [facility] [address] [place], [address] CA,Total 9.0 mg/dL Normal 8.5-10.1 [facility] Comment on above: Performed By: #### L 500.4100, L100.0100, L500.4050, L501.9520 #### [facility] [address] [place], [address] Chloride [Moles/Vol] 105 mmol/L Normal 98-107 [facility] Comment on above: Performed By: #### L 500.4100, L100.0100, L500.4050, [id number] #### [facility] [address] [place], [address] CO2 [Moles/Vol] 30.0 mmol/L Normal 21.0-32.0 [facility] Comment on above: Performed By: #### L 500.4100, L100.0100, L500.4050, L501.9520 #### [facility] [address] [place], [address] Creatinine [Mass/Vol] 0.88 mg/dL Normal 0.70-1.30 [facility] Comment on above: Result Comment: The validity of the calculated GFR GFRAA in patients over 70 years has not been determined. Clinical correlation is essential. Performed By: #### L 500.4100, L100.0100, L500.4050, L501.9520 #### [facility] [address] [place], [address] EST GFR - AA 116 mL/min Normal >60 [facility] Comment on above: Result Comment: Afri can Ghanaian GFR Calc Performed By: #### L 500.4100, L100.0100, L500.4050, L501.9520 #### [facility] [address] [place], [address] GAP 3 Low 5-15 [facility] Comment on above: Performed By: #### L 500.4100, L100.0100, L500.4050, L501.9520 #### [facility] [address] [place], [address] GFR/1.73 sq M.predicted among non-blacks MDRD (S/P/Bld) [Vol rate/Area] 96 mL/min/{1.73_m2} Normal >60 [facility] Comment on above: Result Comment: Non- GFR Calc Performed By: #### L 500.4100, L100.0100, L500.4050, L501.9520 #### [facility] [address] [place], [address] Globulin (S) [Mass/Vol] 3.4 g/dL Normal 2.2-4.2 [facility] Comment on above: Performed By: #### L 500.4100, L100.0100, L500.4050, L501.9520 #### [facility] [address] [place], [address] Glucose [Mass/Vol] 116 mg/dL High 74-106 [facility] Comment on above: Result Comment: Fast ing Glucose result from 100 to 125 mg/dL suggests IMPAIRED HOMEOSTASIS per A.D.A. criteria. Performed By: #### L 500.4100, L100.0100, L500.4050, L501.9520 #### [facility] [address] [place], [address] Potassium [Moles/Vol] 4.4 mmol/L Normal 3.5-5.1 [facility] Comment on above: Performed By: #### L 500.4100, L100.0100, L500.4050, L501.9520 #### [facility] [address] [place], [address] Sodium [Moles/Vol] 138 mmol/L Normal 136-145 [facility] Comment on above: Performed By: #### L 500.4100, L100.0100, L500.4050, L501.9520 #### [facility] [address] [place], [address] T PROT 7.3 g/dL Normal 6.4-8.2 [facility] Comment on above: Performed By: #### L 500.4100, L100.0100, L500.4050, L501.9520 #### [facility] [address] [place], [address] Urea nitrogen [Mass/Vol] 12 mg/dL Normal 7-18 [facility] Comment on above: Performed By: #### L 500.4100, L100.0100, L500.4050, L501.9520 #### [facility] [address] [place], [address] Determination of erythrocyte mean corpuscular volume (MCV)Ordered By: Liza Obregon on 05-18-2023 MCV (RBC) [Entitic vol] 88.6 fL 80-94 [facility] Hematocrit Auto (Bld) [Volum e fraction][facility]: [facility] Hematocrit (Bld) [Volume fraction] 47.6 % 40-54 [facility] - Chemistry and C hemistry - challengeOrdered By: Liza Sabas on 05-18-2023 ALP [Catalytic activity/Vol] 56 U/L 45-117 [facility] ALT [Catalytic activity/Vol] 38 U/L 16-61 [facility] CO2 [Moles/Vol] 30.0 mmol/L 21.0-32.0 [facility] Globulin (S) [Mass/Vol] 3.4 g/dL 2.2-4.2 [facility] Urea nitrogen/Creatinine [Mass ratio] 13.7 mg/mg 10-20 [facility] - Hematology and Cell countsOrdered By: Liza Obregon on 05-18-2023 Erythrocyte distribution width (RBC) [Entitic vol] 41.6 fL 35.1-43.9 [facility] Erythrocyte distribution width (RBC) [Ratio] 12.9 % 11.6-14.6 [facility] Immature granulocytes/100 WBC (Bld) 0.700 % 0.0-0.9 [facility] Comment on above: IG% - Immature Granu locytes (promyelocytes, myelocytes and metamyelocytes) > 1% indicates that a LEFT SHIFT is Present. MCH (RBC) [Entitic mass] 31.7 pg 27.0-32.0 [facility] Nucleated RBC/100 WBC (Bld) [Ratio] 0 % 0-5 [facility] Lipid Profileon 05-18-2023 Cholesterol [Mass/Vol] 146 mg/dL Normal 200 [facility] Comment on above: Result Comment: <200 mg/dL Desirable 200-240 mg/dL Borderline >240 mg/dL High Risk Performed By: #### L 500.4100, L100.0100, L500.4050, L501.9520 #### [facility] [address] [place], [address] Cholesterol in HDL [Mass/Vol] 45 mg/dL Normal [facility] Comment on above: Result Comment: The drugs N-Acetylcysteine and Metamizole may falsely depress this assay. Reference Range HDL <40 mg/dL Low HDL Cholesterol HDL >or= 60 mg/dL High HDL Cholesterol Performed By: #### L 500.4100, L100.0100, L500.4050, L501.9520 #### [facility] [address] [place], [address] Cholesterol in LDL [Mass/Vol] 66 mg/dL Normal 0-130 [facility] Comment on above: Performed By: #### L 500.4100, L100.0100, L500.4050, L501.9520 #### [facility] [address] [place], [address] Cholesterol in VLDL [Mass/Vol] 35 mg/dL Normal 5-40 [facility] Comment on above: Performed By: #### L 500.4100, L100.0100, L500.4050, L501.9520 #### [facility] [address] [place], [place], [address] Triglyceride [Mass/Vol] 173 mg/dL Normal [facility] Comment on above: Result Comment: The drugs N-Acetylcysteine and Metamizole may falsely depress this assay. Serum Triglycerides Reference Interval Normal <150 mg/dL Borderline high 150 - 199 mg/dL High 200 - 499 mg/dL Very High > or = 500 mg/dL Performed By: #### L 500.4100, L100.0100, L500.4050, L501.9520 #### [facility] [address] [place], [place], [address] MCHC Auto (RBC) [Mass/Vol]Or dered By: Liza Obregon on 05-18-2023 MCHC (RBC) [Mass/Vol] 35.7 g/dL 32-36 [facility] No Panel InformationOrdered By: Liza Obregon on 05-18-2023 Estimated GFR (MDRD) Amer 116 mL/min >60 [facility] Comment on above: GFR Calc Estimated GFR (MDRD) Non-Af Amer 96 mL/min >60 [facility] Comment on above: Non- GFR Calc Thyroid Stimulating Hormone (TSH) 1.50 uIU/mL 0.358-3.74 [facility] Platelets bldOrdered By: Caroline Obregon on 05-18-2023 Platelets (Bld) [#/Vol] 173 10*3/uL 150-450 [facility] Serum or plasma albumin jovany urement (mass/volume)Ordered By: Liza Obregon on 05-18-2023 Albumin [Mass/Vol] 3.9 g/dL 3.2-5.0 [facility] Serum or plasma albumin/glob ulin mass ratioOrdered By: Liza Obregon on 05-18-2023 Albumin/Globulin [Mass ratio] 1.1 {ratio} 0.9-2.4 [facility] Serum or plasma calcium jovany urement (mass/volume)Ordered By: Liza Obregon on 05-18-2023 Calcium [Mass/Vol] 9.0 mg/dL 8.5-10.1 [facility] Serum or plasma cholesterol in HDL measurement (mass/volume)Ordered By: Liza Obregon on 05-18-2023 Cholesterol in HDL [Mass/Vol] 45 mg/dL >40 [facility] Comment on above: The drugs N-Acetylcy steine and Metamizole may falsely depress this assay. Reference Range HDL <40 mg/dL Low HDL Cholesterol HDL >or= 60 mg/dL High HDL Cholesterol Serum or plasma cholesterol in VLDL measurement (mass/volume)Ordered By: Liza Obregon on 05-18-2023 Cholesterol in VLDL [Mass/Vol] 35 mg/dL 5-40 [facility] Serum or plasma creatinine m easurement (mass/volume)[facility]23 Creatinine [Mass/Vol] 0.88 mg/dL 0.70-1.30 [facility] Comment on above: The validity of the calculated GFR & GFRAA in patients over 70 years has not been determined. Clinical correlation is essential. Serum or plasma low density lipoprotein (LDL) cholesterol measurement (mass/volume)Ordered By: Liza Obregon on 05-18-2023 Cholesterol in LDL [Mass/Vol] 66 mg/dL 0-130 [facility] Serum or plasma urea nitroge n measurement (mass/volume)Or[facility]: [facility] 05-18-2023 Urea nitrogen [Mass/Vol] 12 mg/dL 7-18 [facility] Thin prep Papanicolaou smear with manual screeningOrdered By: [facility] 05-18-2023 Thin prep Papanicolaou smear with manual screening 23 U/L 15-37 [facility] Thin prep Papanicolaou smear with manual screening 3 5-15 [facility] Thyroid Stim Hormone (TSH)on 05-18-2023 TSH 1.50 uIU/mL Normal 0.358-3.74 [facility] Comment on above: Performed By: #### L 500.4100, L100.0100, L500.4050, L501.9520 #### [facility] [address], [address] CNPJessica 04-26-2023 OCTAVIANO Telephone ([facility]) KRYSTYNA GENTILE ([id number]) 1970 M Date Time Provider Department 04/26/23 LEO JAEGER During your visit today, we recorded the following information about you: Navneet Castañeda 04/26/2023 11:03 AM Signed Population Health informed office that the following orders need generated for the care gaps to close for the year. -Good morning and I hope you had a good weekend. Need documentation on vaccines discussion risk vs benefit, -Documentation of Hep C and HIV discussion risks vs benefits Allergies As of Date: 04/26/2023 (No Known Allergies) Date Reviewed: 04/11/2023 Reviewed by: Dorothy Alston LPN - Fully Assessed Reason for Visit: Population Health Navigation Outreach [3910] Prescriptions as of 05/04/2023 - amLODIPine (NORVASC) 5 mg tablet take 1 tablet by mouth once daily - omeprazole (PRILOSEC) 20 mg capsule take 1 capsule by mouth once daily as directed - metoprolol succinate ER (TOPROL XL) 50 mg 24 hr tablet Take 1 tablet by mouth once daily. - lisinopril (ZESTRIL, PRINIVIL) 20 mg tablet Take 1 tablet by mouth once daily. - Benzonatate (TESSALON) 200 mg ORAL capsule Take 200 mg by mouth three times daily as needed. FOR COUGHING. - codeine-guaifenesin 10-100 mg/5 mL ORAL Syrp TAKE 1-2 TEASPOON at bedtime NEEDED FOR COUGHING. - hydrochlorothiazide 25 mg ORAL tablet Take one(1) tablet daily. Problem List As Of Date 04/26/2023 Noted Resolved SEBACEOUS CYST [L72.3] 07/28/2005 08/27/2006 BENIGN HYPERTENSION [I10] 12/25/2005 OBESITY NOS [E66.9] 03/19/2006 DERMATITIS NOS [L25.9] 08/27/2006 IMPAIRED FASTING GLUCOSE [R73.01] 08/27/2006 02/17/2007 IMPAIRED FASTING GLUCOSE [R73.01] 06/02/2009 Elevated Lfts 02/02/2010 Hyperlipidemia [E78.5] 06/17/2017 Impaired glucose tolerance [R73.02] 06/17/2017 Encounter Status:Closed by NAVNEET CASTAÑEDA on 05/04/23 [facility] CNOVon 04-11-2023 CNOV Office Visit ([facility] ) GENTILEKRYSTYNA PIPER ([id number]) 1970 M Date Time Provider Department 04/11/23 8:00 AM LEO JAEGER During your visit today, we recorded the following information about you: Temperature Pulse Respiration Blood pressure 96.8 degrees 71/minute 18/minute 128/78 Weight Height 108.5 kg 1.803 m Dorothy Alston LPN 04/11/2023 8:31 AM Signed Patient in office today for an annual wellness exam. Health Maintenance Due: HEPATITIS B(1 of 3 - 3-dose series) refused COVID-19 VACCINE(1) refused HEPATITIS C SCREENING refused HIV SCREENING refused DTAP,TDAP,TD(2 - Tdap) refused SHINGRIX VACCINE(1 of 2) refused DEPRESSION ASSESSMENT done Dorothy Alston LPN April 11, 2023 8:11 AM Leo Jaeger MD 04/11/2023 8:31 AM Signed This note was created using Ning by [employer]. Subjective Krystyna Paerkh Gentile is a 52 year old male. Joni presents today for his annual wellness exam. His blood pressures been under excellent control on his current medications. Review of Systems Constitutional: Negative. HENT: Negative. Eyes: Negative. Respiratory: Negative. Cardiovascular: Negative. Gastrointestinal: Negative. Endocrine: Negative. Genitourinary: Negative. Musculoskeletal: Negative. Skin: Negative. Allergic/Immunologic: Negative. Neurological: Negative. Hematological: Negative. Psychiatric/Behavioral: Negative. Objective BP 128/78 (BP Site: Left Arm, BP Position: Sitting, BP Cuff Size: Large Adult) Pulse 71 Temp 36 ?C (96.8 ?F) (Temporal) Resp 18 Ht 180.3 cm (5' 11) Wt 108.5 kg (239 lb 2 oz) SpO2 98% BMI 33.35 kg/m? Physical Exam Vitals reviewed. Constitutional: Appearance: Normal appearance. HENT: Head: Normocephalic and atraumatic. Nose: Nose normal. Eyes: Extraocular Movements: Extraocular movements intact. Pupils: Pupils are equal, round, and reactive to light. Cardiovascular: Rate and Rhythm: Normal rate and regular rhythm. Pulmonary: Effort: Pulmonary effort is normal. Breath sounds: Normal breath sounds. Abdominal: General: Bowel sounds are normal. Palpations: Abdomen is soft. Musculoskeletal: General: Normal range of motion. Cervical back: Normal range of motion and neck supple. Skin: General: Skin is warm and dry. Capillary Refill: Capillary refill takes less than 2 seconds. Neurological: General: No focal deficit present. Mental Status: He is alert and oriented to person, place, and time. Mental status is at baseline. Psychiatric: Mood and Affect: Mood normal. Behavior: Behavior normal. Assessment and Plan Encounter Diagnosis ICD-10-CM 1. Wellness examination Z00.00 COMP METABOLIC PANEL 2. Screening for depression Z13.31 DEPRESSION SCREENING/ASSESSMENT 3. Lipid screening Z13.220 LIPID PANEL BASIC 4. Screening for deficiency anemia Z13.0 CBC + DIFF 5. Screening PSA (prostate specific antigen) Z12.5 PSA/PROSTSPECAG SCRN 6. Hypertension, essential I10 COMP METABOLIC PANEL Leo Jaeger MD Allergies As of Date: 04/11/2023 (No Known Allergies) Date Reviewed: 04/11/2023 Reviewed by: Dorothy Alston LPN - Fully Assessed Reason for Visit: Wellness [440] Primary Visit Diagnosis:Wellness examination [Z00.00] Other Visit Diagnoses:Screening for depression [Z13.31] Lipid screening [Z13.220] Screening for deficiency anemia [Z13.0] Screening PSA (prostate specific antigen) [Z12.5] Hypertension, essential [I10] Order(s):DEPRESSION SCREENING/ASSESSMENT [8379726] Order #: [id number]: 1 CBC + DIFF [SQCBCDIF] Order #: [id number] FUTURE COMP METABOLIC PANEL [SQCMP] Order #: [id number] FUTURE LIPID PANEL BASIC [SQLIPB] Order #: [id number] FUTURE PSA/PROSTSPECAG SCRN [SQPSAS1] Order #: [id number] FUTURE Prescriptions as of 04/11/2023 - metoprolol succinate ER (TOPROL XL) 50 mg 24 hr tablet Take 1 tablet by mouth once daily. - lisinopril (ZESTRIL, PRINIVIL) 20 mg tablet Take 1 tablet by mouth once daily. - amLODIPine (NORVASC) 5 mg tablet Take 1 tablet by mouth once daily. - omeprazole (PRILOSEC) 20 mg capsule Take by mouth. - Benzonatate (TESSALON) 200 mg ORAL capsule Take 200 mg by mouth three times daily as needed. FOR COUGHING. - codeine-guaifenesin 10-100 mg/5 mL ORAL Syrp TAKE 1-2 TEASPOON at bedtime NEEDED FOR COUGHING. - hydrochlorothiazide 25 mg ORAL tablet Take one(1) tablet daily. Problem List As Of Date 04/11/2023 Noted Resolved SEBACEOUS CYST [L72.3] 07/28/2005 08/27/2006 BENIGN HYPERTENSION [I10] 12/25/2005 OBESITY NOS [E66.9] 03/19/2006 DERMATITIS NOS [L25.9] 08/27/2006 IMPAIRED FASTING GLUCOSE [R73.01] 08/27/2006 02/17/2007 IMPAIRED FASTING GLUCOSE [R73.01] 06/02/2009 Elevated Lfts 02/02/2010 Hyperlipidemia [E78.5] 06/17/2017 Impaired glucose tolerance [R73.02] 06/17/2017 Level of Service: WELLNESS EXAMS EST 40-64 YRS [02111] [place] (more content not included)... [facility] CNOVon 10-04-2022 CNOV Office Visit (FAMMAS ) KRYSTYNA GENTILE ([id number]) 1970 M Date Time Provider Department 10/04/22 8:00 AM LEO JAEGER During your visit today, we recorded the following information about you: Temperature Pulse Respiration Blood pressure 97.6 degrees 78/minute 18/minute 122/72 Weight Height 106.4 kg 1.803 m Sandra Vang LPN 10/04/2022 8:40 AM Signed Patient is in office today for 6 month exam. Patient stated sometimes if he stands up he feels lightheaded/dizzy, would like to discuss his current blood pressure medications. Sandra Vang LPN October 04, 2022 8:12 AM Leo Jaeger MD 10/04/2022 8:40 AM Signed This note was created using Proenza Schouer. Subjective Krystyna Gentile is a 52 year old male. Krystyna presents today for follow-up for his hypertension. His blood pressure is under excellent control on his current regimen. He has continued to exercise and has lost more weight. His blood pressure at home is averaging 120/70. He has no new complaints today. He is feeling well. Review of Systems Constitutional: Negative. HENT: Negative. Eyes: Negative. Respiratory: Negative. Cardiovascular: Negative. Gastrointestinal: Negative. Endocrine: Negative. Genitourinary: Negative. Musculoskeletal: Negative. Skin: Negative. Allergic/Immunologic: Negative. Neurological: Negative. Hematological: Negative. Psychiatric/Behavioral: Negative. Objective BP 122/72 (BP Site: Left Arm, BP Position: Sitting, BP Cuff Size: Large Adult) Pulse 78 Temp 36.4 ?C (97.6 ?F) (Temporal) Resp 18 Ht 180.3 cm (5' 11) Wt 106.4 kg (234 lb 9.6 oz) SpO2 98% BMI 32.72 kg/m? Physical Exam Vitals reviewed. Constitutional: Appearance: Normal appearance. HENT: Head: Normocephalic and atraumatic. Nose: Nose normal. Eyes: Extraocular Movements: Extraocular movements intact. Pupils: Pupils are equal, round, and reactive to light. Cardiovascular: Rate and Rhythm: Normal rate and regular rhythm. Pulmonary: Effort: Pulmonary effort is normal. Breath sounds: Normal breath sounds. Abdominal: General: Bowel sounds are normal. Palpations: Abdomen is soft. Musculoskeletal: General: Normal range of motion. Cervical back: Normal range of motion and neck supple. Skin: General: Skin is warm and dry. Capillary Refill: Capillary refill takes less than 2 seconds. Neurological: General: No focal deficit present. Mental Status: He is alert and oriented to person, place, and time. Mental status is at baseline. Psychiatric: Mood and Affect: Mood normal. Behavior: Behavior normal. Assessment and Plan Krystyna was seen today for 6 month exam. Diagnoses and all orders for this visit: Essential hypertension, benign Continue present medications. Monitor blood pressure regularly. Follow-up in 6 months Allergies As of Date: 10/04/2022 (No Known Allergies) Date Reviewed: 10/04/2022 Reviewed by: Sandra Vang LPN - Fully Assessed Reason for Visit: 6 Month Exam [189] Primary Visit Diagnosis:Essential hypertension, benign [I10] Prescriptions as of 10/04/2022 - amLODIPine (NORVASC) 5 mg tablet Take 1 tablet by mouth once daily. - omeprazole (PRILOSEC) 20 mg capsule Take by mouth. - lisinopril (ZESTRIL, PRINIVIL) 20 mg tablet Take 1 tablet by mouth once daily. - metoprolol succinate ER (TOPROL XL) 50 mg 24 hr tablet Take 50 mg by mouth once daily. - Benzonatate (TESSALON) 200 mg ORAL capsule Take 200 mg by mouth three times daily as needed. FOR COUGHING. - codeine-guaifenesin 10-100 mg/5 mL ORAL Syrp TAKE 1-2 TEASPOON at bedtime NEEDED FOR COUGHING. - hydrochlorothiazide 25 mg ORAL tablet Take one(1) tablet daily. - atenolol 25 mg ORAL tablet Take one(1) tablet daily. Medication notes this encounter AMLODIPINE 5 MG TABLET >> Sandra Vang LPN 10/04/2022 8:16 AM >> SANDRA VANG TueOct 04, 2022 8:16 AM pt needs an appointment Problem List As Of Date 10/04/2022 Noted Resolved SEBACEOUS CYST [L72.3] 07/28/2005 08/27/2006 BENIGN HYPERTENSION [I10] 12/25/2005 OBESITY NOS [E66.9] 03/19/2006 DERMATITIS NOS [L25.9] 08/27/2006 IMPAIRED FASTING GLUCOSE [R73.01] 08/27/2006 02/17/2007 IMPAIRED FASTING GLUCOSE [R73.01] 06/02/2009 Elevated Lfts 02/02/2010 Medications Discontinued During This Encounter Prescriptions - lisinopril 10 mg ORAL tablet (Discontinued) Take one(1) tablet daily. Level of Service: OFFICE/OUTPATIENT ESTABLISHED LOW MDM 20-29 MIN [50366] Encounter Status:Closed by LEO JAEGER on 10/04/22 Normal [facility] CMPon 01-28-2021 Albumin [Mass/Vol] 4.5 g/dL Normal 3.2-5.0 [facility] Comment on above: Performed By: #### L 500.02300, L500.62870, L500.24868 #### [facility] [address] [place] [address] Albumin/Globulin [Mass ratio] 1.7 {ratio} Normal 0.8-2.0 [facility] Comment on above: Performed By: #### L 500.89505, L500.91211, L500.91082 #### [facility] [address] [place] [address]2896 ALK PHOS 67 U/L Normal 45-117 [facility] Comment on above: Performed By: #### L 500.70131, L500.93083, L500.26674 #### [facility] [address] [place] [address]3676 ALT [Catalytic activity/Vol] 42 U/L Normal 13-61 [facility] Comment on above: Result Comment: RESU LTS MAY BE FALSELY DEPRESSED AFTER THE ADMINISTRATION OF SULFASALAZINE AND/OR SULFAPYRIDINE. Performed By: #### L 500.29794, L500.24432, L500.22428 #### [facility] [address] [place] [address]159 Anion gap [Moles/Vol] 4 mmol/L Low 5-16 [facility] Comment on above: Performed By: #### L 500.33345, L500.01064, L500.46710 #### [facility] [place] [address] BILI TOTAL 1.50 MG/DL High 0.2-1.0 [facility] Comment on above: Performed By: #### L 500.17235, L500.35705, L500.05749 #### [facility] [address] [place] [address] Calcium [Mass/Vol] 10.4 mg/dL Normal 8.5-10.5 [facility] Comment on above: Result Comment: NOTE NEW NORMAL RANGE DUE TO REAGENT CHANGE Performed By: #### L 500.12265, L500.73049, L500.96180 #### [facility] [address] [place] [address] Chloride [Moles/Vol] 106 mmol/L Normal 98-107 [facility] Comment on above: Performed By: #### L 500.54793, L500.62881, L500.02511 #### [facility] [address] [place] [address] CO2 [Moles/Vol] 27.0 mmol/L Normal 21-32 [facility] Comment on above: Performed By: #### L 500.18383, L500.65778, L500.04525 #### [facility] [address] [place] [address] Creatinine [Mass/Vol] 0.88 mg/dL Normal 0.5-1.4 [facility] Comment on above: Result Comment: NOTE NEW NORMAL RANGE DUE TO REAGENT CHANGE Patients receiving either N-Acetylcysteine (NAC) or Metamizole prior to venipuncture, may have falsely depressed results. Performed By: #### L 500.27162, L500.75868, L500.57005 #### [facility] [address] [place] [address] Globulin (S) [Mass/Vol] 2.6 g/dL Normal 2.2-4.2 [facility] Comment on above: Performed By: #### L 500.93435, L500.38153, L500.83264 #### [facility] [address] [place], [place] [address] Glucose [Mass/Vol] 125 mg/dL High 70-100 [facility] Comment on above: Result Comment: 70-1 00- Normal Fasting; 100-125 Impaired Fasting; greater than 126 on more than one result- Diabetes. ADA guidelines. Results may be falsely elevated after the administration of Sulfapyridine. Results may be falsely depressed after the administration of Sulfasalazine. Performed By: #### L 500.10434, L500.98120, L500.38171 #### [facility] [address] [place] [address] Potassium [Moles/Vol] 5.0 mmol/L Normal 3.5-5.1 [facility] Comment on above: Result Comment: Slig ht Hemolysis, Result may be affected. Performed By: #### L 500.19103, L500.20572, L500.93460 #### [facility] [address] [place] [address] Protein [Mass/Vol] 7.1 g/dL Normal 6.0-8.5 [facility] Comment on above: Performed By: #### L 500.83898, L500.00857, L500.97534 #### [facility] [address] [place], [place] [address] SGOT (AST) 40 U/L High 8-34 [facility] Comment on above: Result Comment: RESU LTS MAY BE FALSELY DEPRESSED AFTER THE ADMINISTRATION OF SULFASALAZINE AND/OR SULFAPYRIDINE. Performed By: #### L 500.49181, L500.87889, L500.20036 #### [facility] [address] [place] [address]6914 Sodium [Moles/Vol] 137 mmol/L Normal 136-145 [facility] Comment on above: Performed By: #### L 500.43446, L500.78607, L500.06393 #### [facility] [address] [place] [address]857 Urea nitrogen [Mass/Vol] 16 mg/dL Normal 7-26 [facility] Comment on above: Performed By: #### L 500.52810, L500.95866, L500.88393 #### [facility] [address] [place] [address]2628 Urea nitrogen/Creatinine [Mass ratio] 18 mg/mg Normal 15-24 [facility] Comment on above: Performed By: #### L 500.99648, L500.03194, L500.12275 #### [facility] [address] [place] [address] GFR ESTon 01-28-2021 IF AMER Greater than 60 Normal [facility] Comment on above: Performed By: #### L 500.40286, L500.76165, L500.69071 #### [facility] [address] [place] [address] 47884 IF non-AFR AMER Greater than 60 Normal [facility] Comment on above: Performed By: #### L 500.92082, L500.33185, L500.88634 #### [facility] [address] [place], [place] [address] HGB A1C GLYCOHBon 01-28-2021 HbA1c (Bld) [Mass fraction] 5.6 % Normal 4.3-6.0 [facility] Comment on above: Performed By: #### L 550.20470 #### [facility] [address] [place] [address] LIPIDon 01-28-2021 Cholesterol [Mass/Vol] 175 MG/dL Normal 0-199 [facility] Comment on above: Performed By: #### L 500.78714, L500.97252, L500.37586, L500.96281 #### [facility] [address] [place] [address] Cholesterol in HDL [Mass/Vol] 49 mg/dL Normal GREATER THAN 40 [facility] Comment on above: Result Comment: Christina ents receiving Metamizole prior to venipuncture, may have falsely depressed results. Performed By: #### L 500.37567, L500.70951, L500.38533, L500.13446 #### [facility] [address] [place] [address] Cholesterol in LDL [Mass/Vol] 106 mg/dL Normal [facility] Comment on above: Result Comment: ___C HOLESTEROL/HDL RATIO RISK___ CHD RISK = Total CHOL LDL HDL (CHOL/HDL) Recommended <200 <130 >40 <3.4 Borderline 200-239 130-159 3.4-4.99 High >240 >160 >5.0 Performed By: #### L 500.31528, L500.63122, L500.06678, L500.23893 #### [facility] [address] [place] [address] Triglyceride [Mass/Vol] 99 mg/dL Normal 30-149 [facility] Comment on above: Result Comment: Christina ents receiving either N-Acetylcysteine (NAC) or Metamizole prior to venipuncture, may have falsely depressed results. Performed By: #### L 500.91747, L500.62149, L500.01785, L500.41284 #### [facility] [address] [place] [address] CBC W/DIFFon 04-22-2020 BASO ABS 0.10 K/CU MM Normal 0-0.2 [facility] Comment on above: Performed By: #### L 200.02092, L550.51147 #### [facility] [address] [place] [address] Basophils/100 WBC (Bld) 0.8 % Normal 0-2 [facility] Comment on above: Performed By: #### L 200.57043, L550.05565 #### [facility] [address] [place] [address] EOS ABS 0.20 K/CU MM Normal 0-0.5 [facility] Comment on above: Performed By: #### L 200.25307, L550.10472 #### [facility] [address] [place] [address] Eosinophils/100 WBC (Bld) 3.4 % Normal 0-5 [facility] Comment on above: Performed By: #### L 200.33844, L550.60758 #### [facility] [address] [place] [address] Erythrocyte distribution width (RBC) [Ratio] 12.4 % Normal 11-14.5 [facility] Comment on above: Performed By: #### L 200.22896, L550.75656 #### [facility] [address] [place] [address] Hematocrit (Bld) [Volume fraction] 47.4 % Normal 41.0-53.0 [facility] Comment on above: Performed By: #### L 200.79015, L550.05729 #### [facility] [address] [place] [address] Hemoglobin (Bld) [Mass/Vol] 16.8 g/dL Normal 13.5-17.5 [facility] Comment on above: Performed By: #### L 200.98262, L550.65483 #### [facility] [address] [place] [address] IMMATR GRAN ABS 0.00 K/CU MM Normal Less than 2 [facility] Comment on above: Performed By: #### L 200.81714, L550.98406 #### [facility] [address] [place] [address] IMMATURE GRAN % 0.5 % Normal Less than 2 [facility] Comment on above: Performed By: #### L 200.59775, L550.99990 #### [facility] [address] [place] [address] Lymphocytes (Bld) [#/Vol] 1.40 K/CU MM Normal 0.9-4.4 [facility] Comment on above: Performed By: #### L 200.48626, L550.51815 #### [facility] [address] [place] [address] Lymphocytes/100 WBC (Bld) 23.0 % Normal 20-40 [facility] Comment on above: Performed By: #### L 200.10756, L550.51050 #### [facility] [address] [place], [place] [address] MCHC (RBC) [Mass/Vol] 35.4 g/dL Normal 32.0-36.0 [facility] Comment on above: Performed By: #### L 200.86444, L550.22758 #### [facility] [address] [place] [address] MCV (RBC) [Entitic vol] 86.2 fL Normal 80.0-99.0 [facility] Comment on above: Performed By: #### L 200.38387, L550.50550 #### [facility] [address] [place] [address] MONO ABS 0.60 K/CU MM Normal 0.1-1.1 [facility] Comment on above: Performed By: #### L 200.54520, L550.23452 #### [facility] [address] [place] [address] Monocytes/100 WBC (Bld) 9.0 % Normal 2-10 [facility] Comment on above: Performed By: #### L 200.10303, L550.78716 #### [facility] [address] [place] [address] NEUTROPHIL ABS 4.00 K/CU MM Normal 2.0-8.3 [facility] Comment on above: Performed By: #### L 200.94808, L550.47373 #### [facility] [address] [place] [address] Neutrophils/100 WBC (Bld) 63.3 % Normal 45-75 [facility] Comment on above: Performed By: #### L 200.26031, L550.42736 #### [facility] [address] [place] [address] Nucleated RBC/100 WBC (Bld) [Ratio] 0.0 % Normal Less than 1 [facility] Comment on above: Performed By: #### L 200.02110, L550.45690 #### [facility] [address] [place], [place] [address] Platelet mean volume (Bld) [Entitic vol] 11.2 fL Normal 9.4-12.4 [facility] Comment on above: Performed By: #### L 200.29024, L550.34628 #### [facility] [address] [place] [address] Platelets (Bld) [#/Vol] 168 K/CU MM Normal 150-450 [facility] Comment on above: Performed By: #### L 200.53327, L550.21746 #### [facility] [address] [place] [address] RBC (Bld) [#/Vol] 5.50 M/CU MM Normal 4.50-6.00 [facility] Comment on above: Performed By: #### L 200.77155, L550.90534 #### [facility] [address] [place] [address] WBC (Bld) [#/Vol] 6.3 K/CUMM Normal 4.5-11.0 [facility] Comment on above: Performed By: #### L 200.76022, L550.33792 #### [facility] [address] [place] [address] CMPon 04-22-2020 Albumin [Mass/Vol] 4.2 g/dL Normal 3.2-5.0 [facility] Comment on above: Performed By: #### L 500.65745, L500.69249, L500.60319, L500.68512 #### [facility] [address] [place] [address] Albumin/Globulin [Mass ratio] 1.8 {ratio} Normal 0.8-2.0 [facility] Comment on above: Performed By: #### L 500.44316, L500.04574, L500.35416, L500.92219 #### [facility] [address] [place] [address] ALK PHOS 60 U/L Normal 45-117 [facility] Comment on above: Performed By: #### L 500.23373, L500.03408, L500.09404, L500.44760 #### [facility] [address] [place] [address] ALT [Catalytic activity/Vol] 39 U/L Normal 13-61 [facility] Comment on above: Result Comment: RESU LTS MAY BE FALSELY DEPRESSED AFTER THE ADMINISTRATION OF SULFASALAZINE AND/OR SULFAPYRIDINE. Performed By: #### L 500.43387, L500.74012, L500.70340, L500.57429 #### [facility] [address] [place] [address] Anion gap [Moles/Vol] 9 mmol/L Normal 5-16 [facility] Comment on above: Performed By: #### L 500.20203, L500.63782, L500.56237, L500.90713 #### [facility] [address] [place] [address] BILI TOTAL 1.30 MG/DL High 0.2-1.0 [facility] Comment on above: Performed By: #### L 500.67849, L500.12128, L500.45460, L500.45130 #### [facility] [address] [place] [address] Calcium [Mass/Vol] 9.5 mg/dL Normal 8.5-10.5 [facility] Comment on above: Result Comment: NOTE NEW NORMAL RANGE DUE TO REAGENT CHANGE Performed By: #### L 500.49760, L500.35498, L500.83587, L500.44518 #### [facility] [address] [place] [address] Chloride [Moles/Vol] 105 mmol/L Normal 98-107 [facility] Comment on above: Performed By: #### L 500.10059, L500.77444, L500.30834, L500.97554 #### [facility] [address] [place] [address] CO2 [Moles/Vol] 26 mmol/L Normal 21-32 [facility] Comment on above: Performed By: #### L 500.10266, L500.78617, L500.42458, L500.14247 #### [facility] [address] [place] [address] Creatinine [Mass/Vol] 0.85 mg/dL Normal 0.5-1.4 [facility] Comment on above: Result Comment: NOTE NEW NORMAL RANGE DUE TO REAGENT CHANGE Patients receiving either N-Acetylcysteine (NAC) or Metamizole prior to venipuncture, may have falsely depressed results. Performed By: #### L 500.39588, L500.11992, L500.59039, L500.38865 #### [facility] [address] [place] [address] Globulin (S) [Mass/Vol] 2.4 g/dL Normal 2.2-4.2 [facility] Comment on above: Performed By: #### L 500.22511, L500.33946, L500.07555, L500.58458 #### [facility] [address] [place] [address] Glucose [Mass/Vol] 120 mg/dL High 70-100 [facility] Comment on above: Result Comment: 70-1 00- Normal Fasting; 100-125 Impaired Fasting; greater than 126 on more than one result- Diabetes. ADA guidelines. Results may be falsely elevated after the administration of Sulfapyridine. Results may be falsely depressed after the administration of Sulfasalazine. Performed By: #### L 500.64032, L500.69606, L500.83134, L500.86512 #### [facility] [address] [place] [address] Potassium [Moles/Vol] 4.6 mmol/L Normal 3.5-5.1 [facility] Comment on above: Result Comment: Slig ht Hemolysis, Result may be affected. Performed By: #### L 500.60146, L500.38352, L500.70889, L500.66311 #### [facility] [address] [place] [address] Protein [Mass/Vol] 6.6 g/dL Normal 6.0-8.5 [facility] Comment on above: Performed By: #### L 500.13174, L500.69285, L500.47817, L500.46505 #### [facility] [address] [place] [address] SGOT (AST) 30 U/L Normal 8-34 [facility] Comment on above: Result Comment: RESU LTS MAY BE FALSELY DEPRESSED AFTER THE ADMINISTRATION OF SULFASALAZINE AND/OR SULFAPYRIDINE. Performed By: #### L 500.53862, L500.88276, L500.23663, L500.20942 #### [facility] [address] [place] [address] Sodium [Moles/Vol] 140 mmol/L Normal 136-145 [facility] Comment on above: Performed By: #### L 500.56807, L500.50452, L500.57343, L500.04285 #### [facility] [address] [place] [address] Urea nitrogen [Mass/Vol] 15 mg/dL Normal 7-26 [facility] Comment on above: Performed By: #### L 500.75624, L500.58932, L500.68294, L500.45750 #### [facility] [address] [place], [place] [address] Urea nitrogen/Creatinine [Mass ratio] 18 mg/mg Normal 15-24 [facility] Comment on above: Performed By: #### L 500.42493, L500.66464, L500.20839, L500.02687 #### [facility] [address] [place] [address] GFR ESTon 04-22-2020 IF AMER Greater than 60 Normal [facility] Comment on above: Performed By: #### L 500.25241, L500.07180, L500.71244, L500.64544 #### [facility] [address] [place] [address] IF non-AFR AMER Greater than 60 Normal [facility] Comment on above: Performed By: #### L 500.26766, L500.65520, L500.41870, L500.81040 #### [facility] [address] [place] [address] HGB A1C GLYCOHBon 04-22-2020 HbA1c (Bld) [Mass fraction] 5.7 % Normal 4.3-6.0 [facility] Comment on above: Performed By: #### L 200.90358, L550.20408 #### [facility] [address] [place], [place] [address] LIPIDon 04-22-2020 Cholesterol [Mass/Vol] 165 MG/dL Normal 0-199 [facility] Comment on above: Performed By: #### L 500.20252, L500.58092, L500.26684, L500.77642 #### [facility] [address] [place] [address] Cholesterol in HDL [Mass/Vol] 41 mg/dL Normal GREATER [place] 40 [facility] Comment on above: Result Comment: Christina ents receiving Metamizole prior to venipuncture, may have falsely depressed results. Performed By: #### L 500.76525, L500.87641, L500.48898, L500.64036 #### [facility] [address] [place] [address] Cholesterol in LDL [Mass/Vol] 95 mg/dL Normal [facility] Comment on above: Result Comment: ___C HOLESTEROL/HDL RATIO RISK___ CHD RISK = Total CHOL LDL HDL (CHOL/HDL) Recommended <200 <130 >40 <3.4 Borderline 200-239 130-159 3.4-4.99 High >240 >160 >5.0 Performed By: #### L 500.35051, L500.20646, L500.01252, L500.96446 #### [facility] [address] [place] [address] Triglyceride [Mass/Vol] 144 mg/dL Normal 30-149 [facility] Comment on above: Result Comment: Christina ents receiving either N-Acetylcysteine (NAC) or Metamizole prior to venipuncture, may have falsely depressed results. Performed By: #### L 500.40251, L500.39056, L500.11323, L500.35533 #### [facility] [address] [place] [address] PSA SCREENon 04-22-2020 PSA SCREEN 0.45 NG/ML Normal 0.0-4.0 [facility] Comment on above: Performed By: #### L 500.71404, L500.21933, L500.61337, L500.02801 #### [facility] [address] [place] [address] UA COMPLETEon 04-22-2020 Color (U) Yellow Normal [facility] Comment on above: Performed By: #### L 600.00659 #### [facility] [address] [place] [address] Glucose (U) [Mass/Vol] Negative Normal NORMAL [facility] Comment on above: Performed By: #### L 600.90158 #### [facility] [address] [place], [place] [address] UA APPEARANCE Clear Normal CLEAR [facility] Comment on above: Performed By: #### L 600.30958 #### [facility] [address] [place] [address] UA BILIRUBIN Negative Normal NEGATIVE [facility] Comment on above: Performed By: #### L 600.77975 #### [facility] [address] [place], [place] [address] UA BLOOD Negative Normal NEGATIVE [facility] Comment on above: Performed By: #### L 600.56052 #### [facility] [address] [place], [place] [address] UA KETONE Negative Normal NEGATIVE [facility] Comment on above: Performed By: #### L 600.74047 #### [facility] [address] [place] [address] UA LK ESTERASE Negative Normal NEGATIVE [facility] Comment on above: Performed By: #### L 600.31659 #### [facility] [address] [place] [address] UA NITRITE Negative Normal NEGATIVE [facility] Comment on above: Performed By: #### L 600.73148 #### [facility] [address] [place] [address] UA PH 5.0 Normal 5-6 [facility] Comment on above: Performed By: #### L 600.87762 #### [facility] [address] [place] [address] UA PROTEIN Negative Normal NEGATIVE [facility] Comment on above: Performed By: #### L 600.80265 #### [facility] [address] [place] [address] UA SPEC GRAV 1.021 Normal 1.005-1.030 [facility] Comment on above: Performed By: #### L 600.62143 #### [facility] [address] [place] [address] UA UROBILINOGEN Negative Normal NORMAL [facility] Comment on above: Performed By: #### L 600.91371 #### [facility] [address] [place] [address] Vital Signs Date Time Vital Sign Value Performing Clinician Faci lity 10-04-2022 08:16-0500 Body height 180.3 cm Leo Jaeger MD Work Phone: [facility] 10-04-2022 08:16-0500 Body temperature 97.59 [degF] Leo Jaeger MD Work Phone: [facility] 10-04-2022 08:16-0500 Body weight 106.41 kg Leo Jaeger MD Work Phone: [facility] 10-04-2022 08:16-0500 Diastolic blood pressure 72 mm[Hg] Leo Jaeger MD Work Phone: [facility] 10-04-2022 08:16-0500 Heart rate 78 /min Leo Jaeger MD Work Phone: [facility] 10-04-2022 08:16-0500 Respiratory rate 18 /min Leo Jaeger MD Work Phone: [facility] 10-04-2022 08:16-0500 SaO2% (BldA) [Mass fraction] 98 % Leo Jaeger MD Work Phone: [facility] 10-04-2022 08:16-0500 Systolic blood pressure 122 mm[Hg] Leo Jaeger MD Work Phone: [facility] Encounters Encounter Date Encounter Type Care Provider Facility Start: 04-06-2024 End: 04-06-2024 ambulatory Chalon Sabas Facility:[facility] Start: 10-26-2023 End: 10-26-2023 ambulatory [facility] Work Phone: Start: 10-26-2023 End: 10-26-2023 Patient encounter procedure [facility] Start: 10-26-2023 End: 10-26-2023 ambulatory [facility] Facility:[facility] Start: 05-18-2023 End: 05-18-2023 ambulatory [facility] Work Phone: Start: 05-18-2023 End: 05-18-2023 Patient encounter procedure [facility] Start: 05-18-2023 End: 05-18-[facility] Start: 04-26-2023 Telephone encounter [facility] Comment on above: Population Health Na vigation Outreach Start: 04-11-2023 End: 04-11-2023 ambulatory LEO JAEGER Facility:[id number] Start: 04-11-2023 Encounter for genera l adult medical examination without abnormal findings LEO JAEGER [facility] Start: 11-19-2022 Refill Leo Rasmussen MD Work Phone: [facility] Comment on above: Refill Request Start: 10-04-2022 End: 10-04-2022 ambulatory LEO JAEGER Facility:[id number] Start: 10-04-2022 End: 10-04-2022 Office outpatient visit 15 minutes Leo Jaeger MD Work Phone: [facility] Comment on above: Essential hypertensi on, benign (Primary Dx) Procedures Date Procedure Procedure Detail Performing Clinician Start: 06-04-2021 Colonoscopy Leo marte MD Work Phone: Plan of Treatment Date Care Activity Detail Author Start: 06-04-2028 Colonoscopy COLONOSCOPY [facility] Start: 06-04-2028 COLORECTAL CANCER SCREENING COLORECTAL CANCER SCREENING [facility] Start: 01-28-2026 LIPID SCREEN LIPID SCREEN [facility] Start: 04-11-2024 ANNUAL PCP TEAM RETAIL AGENT ANDREY DISEASE VISIT ANNUAL PCP TEAM CHRONIC DISEASE VISIT [facility] Start: 04-11-2024 BP CONTROLLED (<130/80) BP CONTROLLE D (<130/80) [facility] Start: 01-29-2024 DIABETES SCREEN DIABETES SCREEN [facility] Start: 10-04-2023 ANNUAL PCP TEAM RETAIL AGENT ANDREY DISEASE VISIT ANNUAL PCP TEAM CHRONIC DISEASE VISIT [facility] Start: 10-04-2023 BP CONTROLLED (<130/80) BP CONTROLLE D (<130/80) [facility] Start: 07-01-2023 Influenza vaccination INFLUENZA (#1) [facility] Start: 10-31-2022 DEPRESSION ASSESSMENT [facility]PRESSION [facility] Start: 07-01-2022 Influenza vaccination INFLUENZA (#1) [facility] Start: 10-31-2021 DEPRESSION ASSESSMENT DEPRESSION ASS ESSMENT [facility] Start: 2019 SHINGRIX VACCINE (1 of 2) SHINGRIX V ACCINE (1 of 2) [facility] Start: 2014 COLOGUARD (FIT-DNA) COLOGUARD (FIT-D NA) [facility] Start: 2014 Colonoscopy COLONOSCOPY [facility] Start: 2014 COLORECTAL CANCER SCREENING COLORECTAL CANCER SCREENING [facility] Start: [address] COLONOGRAPHY [facility] Start: 2014 FECAL OCCULT BLOOD FECAL OCCULT BLOO D [facility] Start: 2014 SIGMOIDOSCOPY SIGMOIDOSCOPY [facility] Start: 09-25-2009 Urine microalbumin profile DTAP,TDAP ,TD (2 - Tdap) [facility] Start: 1987 HEPATITIS C SCREENING HEPATITIS C SC REENING [facility] Start: 1987 HIV SCREENING HIV SCREENING [facility] Start: 1969 COVID-19 VACCINE (#1) COVID-19 VACCI NE (#1) [facility] Start: 1969 HEPATITIS B (1 of 3 - 3-dose series) HEPATITIS B (1 of 3 - 3-dose series) [facility] Immunizations Immunization Date Immunization Notes Care Provider Jesus Manuel carlton 09-25-1999 diphtheria and tetan us toxoids, adsorbed for pediatric use Leo Jaeger MD Work Phone: [facility] Work Phone: Payers Date Payer Category Payer Self-pay [id number] 2019 Unknown [id number] 2019 Unknown [id number] Unknown [employer] [id number] Unknown [id number] Unknown [id number] Unknown [id number] Social History Date Type Detail Facility Start: 04-07-2011 End: 04-11-2023 Tobacco smoking status NHIS Never smoked tobacco [facility] Work Phone: Start: 04-07-2011 End: 04-11-2023 Tobacco use and exposure Smokeless tobacco non-user [facility] Work Phone: Start: 10-04-2022 End: 04-11-2023 Alcohol intake Current drinker of alcohol (finding) [facility] Start: 1970 Sex Assigned At Not on file [facility] Start: 09-24-2022 End: 10-04-2022 Exposure to SARS-CoV-2 (event) Not sure [facility] Start: 04-11-2023 History SDOH Alcohol Frequency 2 [facility] Start: 04-11-2023 History SDOH Alcohol Std Drinks 1 [facility] Start: 04-11-2023 History SDOH Social Connections Phone 4 [facility] Start: 04-11-2023 History SDOH Social Connections Living 3 [facility] Start: 04-11-2023 History SDOH Physica l Activity DPW 5 [facility] Start: 1970 Sex Assigned At Male W [facility] NEGATED: Highlighted rowStart: NINF History of tobacco use Passive smoker [facility] Clinical Notes 08-27-2006 to 04-26-2023 Telephone Encounter - Navneet Castañeda - 04/26/2023 11:02 AM EDTTelephone Encounter - Dorothy Alston LPN - 11/19/2022 9:36 AM Anali Jaeger MD - 10/04/2022 8:37 AM EST Note Date & Type Note Facility 04-26-2023 Miscellaneous Notes Formattin g of this note might be different from the original. Population Health informed office that the following orders need generated for the care gaps to close for the year. -Good morning and I hope you had a good weekend. Need documentation on vaccines discussion risk vs benefit, -Documentation of Hep C and HIV discussion risks vs benefits documented in this encounter [facility] 04-11-2023 Note HNO ID: [id number] Author: Leo Jaeger MD Service: ? Author Type: Physician Type: Progress Notes Filed: 04/11/2023 8:31 AM Note Text: This note was created using Ning by [employer]. Subjective Krystyna Gentile is a 52 year old male. Joni presents today for his annual wellness exam. His blood pressures been under excellent control on his current medications. Review of Systems Constitutional: Negative. HENT: Negative. Eyes: Negative. Respiratory: Negative. Cardiovascular: Negative. Gastrointestinal: Negative. Endocrine: Negative. Genitourinary: Negative. Musculoskeletal: Negative. Skin: Negative. Allergic/Immunologic: Negative. Neurological: Negative. Hematological: Negative. Psychiatric/Behavioral: Negative. Objective BP 128/78 (BP Site: Left Arm, BP Position: Sitting, BP Cuff Size: Large Adult) Pulse 71 Temp 36 ?C (96.8 ?F) (Temporal) Resp 18 Ht 180.3 cm (5' 11) Wt 108.5 kg (239 lb 2 oz) SpO2 98% BMI 33.35 kg/m? Physical Exam Vitals reviewed. Constitutional: Appearance: Normal appearance. HENT: Head: Normocephalic and atraumatic. Nose: Nose normal. Eyes: Extraocular Movements: Extraocular movements intact. Pupils: Pupils are equal, round, and reactive to light. Cardiovascular: Rate and Rhythm: Normal rate and regular rhythm. Pulmonary: Effort: Pulmonary effort is normal. Breath sounds: Normal breath sounds. Abdominal: General: Bowel sounds are normal. Palpations: Abdomen is soft. Musculoskeletal: General: Normal range of motion. Cervical back: Normal range of motion and neck supple. Skin: General: Skin is warm and dry. Capillary Refill: Capillary refill takes less than 2 seconds. Neurological: General: No focal deficit present. Mental Status: He is alert and oriented to person, place, and time. Mental status is at baseline. Psychiatric: Mood and Affect: Mood normal. Behavior: Behavior normal. Assessment and Plan Encounter Diagnosis ICD-10-CM 1. Wellness examination Z00.00 COMP METABOLIC PANEL 2. Screening for depression Z13.31 DEPRESSION SCREENING/ASSESSMENT 3. Lipid screening Z13.220 LIPID PANEL BASIC 4. Screening for deficiency anemia Z13.0 CBC + DIFF 5. Screening PSA (prostate specific antigen) Z12.5 PSA/PROSTSPECAG SCRN 6. Hypertension, essential I10 COMP METABOLIC PANEL Leo Jaeger MD [facility] 04-11-2023 Note HNO ID: [id number] Author: Dorothy Alston LPN Service: ? Author Type: LICENSED NURSE Type: Progress Notes Filed: 04/11/2023 8:31 AM Note Text: Patient in office today for an annual wellness exam. Health Maintenance Due: HEPATITIS B(1 of 3 - 3-dose series) refused COVID-19 VACCINE(1) refused HEPATITIS C SCREENING refused HIV SCREENING refused DTAP,TDAP,TD(2 - Tdap) refused SHINGRIX VACCINE(1 of 2) refused DEPRESSION ASSESSMENT done Dorothy Alston LPN April 11, 2023 8:11 AM [facility] 11-19-2022 Miscellaneous Notes Formattin g of this note is different from the original. LAST OFFICE VISIT: 10/04/2022 Spoke with patient today, medications needed and pharmacy confirmed. Requested Prescriptions Pending Prescriptions Disp Refills metoprolol succinate ER (TOPROL XL) 50 mg 24 hr tablet 90 tablet 3 Sig: Take 1 tablet by mouth once daily. lisinopril (ZESTRIL, PRINIVIL) 20 mg tablet 90 tablet 3 Sig: Take 1 tablet by mouth once daily. Dorothy Alston LPN November 19, 2022 9:53 AM documented in this encounter [facility] 10-04-2022 Note HNO ID: [id number] Author: Leo Jaeger MD Service: ? Author Type: Physician Type: Progress Notes Filed: 10/04/2022 8:40 AM Note Text: This note was created using Ning by [employer]. Subjective Krystyna Gentile is a 52 year old male. Krystyna presents today for follow-up for his hypertension. His blood pressure is under excellent control on his current regimen. He has continued to exercise and has lost more weight. His blood pressure at home is averaging 120/70. He has no new complaints today. He is feeling well. Review of Systems Constitutional: Negative. HENT: Negative. Eyes: Negative. Respiratory: Negative. Cardiovascular: Negative. Gastrointestinal: Negative. Endocrine: Negative. Genitourinary: Negative. Musculoskeletal: Negative. Skin: Negative. Allergic/Immunologic: Negative. Neurological: Negative. Hematological: Negative. Psychiatric/Behavioral: Negative. Objective BP 122/72 (BP Site: Left Arm, BP Position: Sitting, BP Cuff Size: Large Adult) Pulse 78 Temp 36.4 ?C (97.6 ?F) (Temporal) Resp 18 Ht 180.3 cm (5' 11) Wt 106.4 kg (234 lb 9.6 oz) SpO2 98% BMI 32.72 kg/m? Physical Exam Vitals reviewed. Constitutional: Appearance: Normal appearance. HENT: Head: Normocephalic and atraumatic. Nose: Nose normal. Eyes: Extraocular Movements: Extraocular movements intact. Pupils: Pupils are equal, round, and reactive to light. Cardiovascular: Rate and Rhythm: Normal rate and regular rhythm. Pulmonary: Effort: Pulmonary effort is normal. Breath sounds: Normal breath sounds. Abdominal: General: Bowel sounds are normal. Palpations: Abdomen is soft. Musculoskeletal: General: Normal range of motion. Cervical back: Normal range of motion and neck supple. Skin: General: Skin is warm and dry. Capillary Refill: Capillary refill takes less than 2 seconds. Neurological: General: No focal deficit present. Mental Status: He is alert and oriented to person, place, and time. Mental status is at baseline. Psychiatric: Mood and Affect: Mood normal. Behavior: Behavior normal. Assessment and Plan Krystyna was seen today for 6 month exam. Diagnoses and all orders for this visit: Essential hypertension, benign Continue present medications. Monitor blood pressure regularly. Follow-up in 6 months [facility] 10-04-2022 Note HNO ID: [id number] Author: Sandra Vang LPN Service: ? Author Type: LICENSED NURSE Type: Progress Notes Filed: 10/04/2022 8:40 AM Note Text: Patient is in office today for 6 month exam. Patient stated sometimes if he stands up he feels lightheaded/dizzy, would like to discuss his current blood pressure medications. Sandra Vang LPN October 04, 2022 8:12 AM [facility] 10-04-2022 History of Presen t illness Narrative This note was created using Ning by [employer]. Subjective Krystyna Gentile is a 52 year old male. Krystyna presents today for follow-up for his hypertension. His blood pressure is under excellent control on his current regimen. He has continued to exercise and has lost more weight. His blood pressure at home is averaging 120/70. He has no new complaints today. He is feeling well. Review of Systems Constitutional: Negative. HENT: Negative. Eyes: Negative. Respiratory: Negative. Cardiovascular: Negative. Gastrointestinal: Negative. Endocrine: Negative. Genitourinary: Negative. Musculoskeletal: Negative. Skin: Negative. Allergic/Immunologic: Negative. Neurological: Negative. Hematological: Negative. Psychiatric/Behavioral: Negative. Objective BP 122/72 (BP Site: Left Arm, BP Position: Sitting, BP Cuff Size: Large Adult) Pulse 78 Temp 36.4 C (97.6 F) (Temporal) Resp 18 Ht 180.3 cm (5' 11) Wt 106.4 kg (234 lb 9.6 oz) SpO2 98% BMI 32.72 kg/m Physical Exam Vitals reviewed. Constitutional: Appearance: Normal appearance. HENT: Head: Normocephalic and atraumatic. Nose: Nose normal. Eyes: Extraocular Movements: Extraocular movements intact. Pupils: Pupils are equal, round, and reactive to light. Cardiovascular: Rate and Rhythm: Normal rate and regular rhythm. Pulmonary: Effort: Pulmonary effort is normal. Breath sounds: Normal breath sounds. Abdominal: General: Bowel sounds are normal. Palpations: Abdomen is soft. Musculoskeletal: General: Normal range of motion. Cervical back: Normal range of motion and neck supple. Skin: General: Skin is warm and dry. Capillary Refill: Capillary refill takes less than 2 seconds. Neurological: General: No focal deficit present. Mental Status: He is alert and oriented to person, place, and time. Mental status is at baseline. Psychiatric: Mood and Affect: Mood normal. Behavior: Behavior normal. Assessment and Plan Krystyna was seen today for 6 month exam. Diagnoses and all orders for this visit: Essential hypertension, benign Continue present medications. Monitor blood pressure regularly. Follow-up in 6 months Patient is in office today for 6 month exam. Patient stated sometimes if he stands up he feels lightheaded/dizzy, would like to discuss his current blood pressure medications. Sandra Vang LPN October 04, 2022 8:12 AM documented in this encounter [facility] 08-27-2006 History of Past i llness Narrative Problem Noted Date Resolved Date Impaired fasting glucose 08/27/2006 007 Overview: see lab 8 Sebaceous cyst 07/28/2005 08/27/2006 documented as of this encounter (statuses as of 10/04/2022) [facility]10-[facility] History of Past illness Narrative* Problem Noted Date Resolved Date Impaired fasting glucose 08/27/2006 007 Overview: see lab 06/05 Sebaceous cyst 07/28/2005 08/27/2006 documented as of this encounter (statuses as of 11/19/2022) [facility] History of Past illness Narrative* Problem Noted Date Resolved Date Impaired fasting glucose 08/27/2006 007 Overview: see lab 06/05 Sebaceous cyst 07/28/2005 08/27/2006 documented as of this encounter (statuses as of 05/04/2023) [facility] Essential hypertension, benign- Primary documented [facility] this [facility] noteNo assessment information availableWH[facility] Work Phone: Summary Purpose Family History No Family History Records FoundNo Family History Records FoundNo Family History Records Found Advance Directives No Advanced Directives Records FoundNo Advanced Directives Records FoundNo Advanced Directives Records Found Additional Source Comments (unrecognized sect ion and content) No Status Records FoundNo Status Records FoundNo Status Records Found INFORMATION SOURCE (unrecogn ized section and content) DATE CREATED AUTHOR 02/04/2021 [facility] [place] DATE CREATED AUTHOR AUTHOR'S ORGANIZ ATION 05/04/2023 [facility] DATE CREATED AUTHOR AUTHOR'S ORGANIZ ATION 04/18/2024 [facility] Source Comments (unrecognize d section and content) In the event this informatio n is protected by the Federal Confidentiality of Alcohol and Drug Abuse Patient Records regulations: The Federal rules restrict any use of the information to criminally investigate or prosecute any alcohol or drug abuse patient.[facility] the event this information is protected by the Federal Confidentiality of Alcohol and Drug Abuse Patient Records regulations: The Federal rules restrict any use of the information to criminally investigate or prosecute any alcohol or drug abuse patient.[facility] the event this information is protected by the Federal Confidentiality of Alcohol and Drug Abuse Patient Records regulations: The Federal rules restrict any use of the information to criminally investigate or prosecute any alcohol or drug abuse patient.[facility] Reason for Visit (unrecogniz ed section and content) Reason Comments 6 Month Exam Reason Onset Date Comments Refill Request 11/19/2022 Reason Comments Population Health Navigation Outreach Care Teams (unrecognized sec tion and content) Porcelain Technician Relationship Specialty Start Date End Date Yadira Love MD PCP - General 05/26/09 Porcelain Technician Relationship Specialty Start Date End Date Leo Jaeger MD [address] [place] [address] PCP - General Family Medicine 11/19/22 Porcelain Technician Relationship Specialty Start Date End Date Leo Jaeger MD [address] [place] [address] PCP - General Family Medicine 11/19/[address] [place] [address] Gastroenterology 04/04/23 Team Status: Active Member Role Status Dates Dr. Leo Jaeger MD Family Provider Active Liza Obregon MD Primary Care Provider Active Team Status: Inactive Member Role Status Dates Liza Obregon MD Primary Care Provider, Attending Prov ider Active Goals (unrecognized section and content) Goals may be documented in a n alternate sectionGoals may be documented in an alternate section FOR RECORDS PERTAINING TO PATIENTS WHO ARE OR HAVE BEEN ENROLLED IN A CHEMICAL DEPENDENCY/SUBSTANCEABUSE PROGRAM, SOME INFORMATION MAY BE OMITTED. This clinical summary was aggregated from multiple sources. Caution should be exercised in using it in the provision of clinical care. This summary normalizes information from multiple sources, and as a consequence, information in this document may materially change the coding, format and clinical context of patient data. In addition, data may be omitted in some cases. CLINICAL DECISIONS SHOULD BE BASED ON THE PRIMARY CLINICAL RECORDS. [email or web address] provides no warranty or guarantee of the accuracy or completeness of information in this document.
[2025-05-21 10:12] LABS: Hematocrit 45.1 % (40-54); Hemoglobin 16.1 g/dL (13.0-16.5); Mean Corp Hgb Conc 35.7 g/dL (32-36); Mean Corpuscular Volume 86.1 fL (80-94); Mean Platelet Vol. 11.0 fl (6.2-12.0); Platelet Count 169 K/mm3 (150-450); RBC Distribution Width CV 12.5 % (11.6-14.6); RBC Distribution Width SD 39.2 fl (35.1-43.9); Red Blood Count 5.24 M/mm3 (4.6-6.2); White Blood Count 5.5 K/mm3 (4.4-11.0)
[2025-05-21 10:50] LABS: AST(SGOT) 24 U/L (<=37); Alanine Aminotransfer ALT/SGPT 21 U/L (<=46); Albumin, Serum 4.3 g/dL (3.5-5.0); Alkaline Phosphatase 54 U/L (40-129); Anion Gap 12 (5-15); BUN 14 mg/dL (4-19); BUN/Creat Ratio 14.7 RATIO (10-20); Calcium,Total 9.2 mg/dL (7.6-11.0); Carbon Dioxide 23.3 mmol/L (21.0-32.0); Chloride 104 mmol/L (98-108); Cholesterol 153 mg/dL (<=200); Globulin 2.5 g/dL (2.2-4.2); Glucose 116 mg/dL (70-99); Low Density Lipoprotein Calc. 83 mg/dL; PSA,Total- Diagnostic 0.71 ng/mL (0.00-4.00); Potassium 4.4 mmol/L (3.3-5.1); Triglycerides 111 mg/dL; Very Low Density Lipoprotein 22 mg/dL (5-40); cholesterol:hdl ratio screen 3.21
== END | disposition home or self-care (01) ==
LOC: MTLAB 07:05
PROVIDERS: PCP Family Medicine; Referring Provider Family Medicine; Visit Provider Family Medicine
DX: R73.03 Prediabetes (principal); I10 Essential (primary) hypertension
CPT/HCPCS: 36415; 80053; 80061; 83036; 84153; 84443; 85027